=== PATIENT | male | born 1950 | race Caucasian/White ===

== ENCOUNTER 2016-10-30 12:35 | Inpatient (IN) | payer MEDICARE ==
[~2016-10-30] VITALS: Ht 188 cm; Wt 105.1 kg
[2016-10-30] VITALS (12 sets, daily range): BP systolic 102–154; BP diastolic 65–108; PULSE 65–140; RESP 16–26; TEMP 98.2–98.7; O2SAT 91–98
[2016-10-30] MEDS ORDERED: ASPIRIN 325 MG TAB PO ONE (13:30)
[2016-10-30] MEDS ORDERED: AMIODARONE INJ 150 MG in DEXTROSE 5% IN WATER 100ML INJ 97 ML IV ONE ×2 (13:30)
[2016-10-30] MEDS ORDERED: SODIUM CHLOR 0.9% 1000 ML INJ 1,000 ML IV SCH (13:30)
[2016-10-30] MEDS ORDERED: SODIUM CHLORIDE 0.9% FLUSH 5 ML FLUSH IVF PRN ×2 (13:30)
[2016-10-30] MEDS ORDERED: ONDANSETRON HCL 4 MG/2 ML VIAL IV PUSH ONE ×2 (13:30)
[2016-10-30] MEDS ORDERED: MORPHINE SULFATE 4 MG/ML INJ IV PUSH ONE ×3 (13:30→14:00)
[2016-10-30] MEDS ORDERED: HEPARIN-D5W INJ 250 ML IV SCH (13:45)
[2016-10-30] MEDS ORDERED: HEPARIN SODIUM - IV 10,000 UNITS/10 ML VIAL IV ONE (13:45)
[2016-10-30 14:01] LABS: AUTOMATED NEUTROPHIL # 10.8 TH/MM3 (1.8-7.7); BASOPHIL % 0.3 % (0.0-2.0); EOSINOPHIL % 0.1 % (0.0-4.0); HEMATOCRIT 37.3 % (39.0-51.0); HEMO FLAGS DIFF FINAL; LYMPH % 5.4 % (9.0-44.0); LYMPHOCYTE # 0.7 TH/MM3 (1.0-4.8); MEAN CELL VOLUME 93.2 FL (80.0-100.0); MEAN CORPUSCULAR HEMOGLOBIN 31.6 PG (27.0-34.0); MEAN CORPUSCULAR HGB CONC 33.9 % (32.0-36.0); MONO % 10.3 % (0.0-8.0); NEUT % 83.9 % (16.0-70.0); PLATELET COUNT 224 TH/MM3 (150-450); RED CELL DISTRIBUTION WIDTH 13.3 % (11.6-17.2); WHITE BLOOD COUNT 12.9 TH/MM3 (4.0-11.0)
--- NOTE | 2016-10-30 14:01 | RADRPT ---
EXAM DATE/TIME: 10/30/2016 13:28 [facility] COMPARISON: No previous studies available for comparison. INDICATIONS : Chest pain. MEDICAL HISTORY : None. SURGICAL HISTORY : None. ENCOUNTER: Initial ACUITY: 1 week PAIN SCORE: 10/10 LOCATION: medial chest. FINDINGS: A single view of the chest demonstrates cardiomegaly. Perihilar and basilar airspace disease. Differe ntial diagnosis includes edema and infection. Probable small effusions. No pneumothorax. CONCLUSION: 1. Cardiomegaly with basilar and perihilar airspace disease and small effusions. Differential diagnos is includes edema and infection. Sanya Pelaez MD on October 30, 2016 at 13:59 Board Certified Radiologist. This report was verified electronically.
[2016-10-30 14:09] LABS: APTT (PATIENT) 28.7 SEC (24.3-30.1); INTERNATIONAL NORMALIZED RATIO 1.1 RATIO; PROTHROMBIN TIME - PATIENT 12.6 SEC (9.8-11.6)
[2016-10-30 14:13] LABS: ALT (GPT) 173 U/L (12-78); ANION GAP 10 MEQ/L (5-15); AST (GOT) 63 U/L (15-37); BICARBONATE 23.7 MEQ/L (21.0-32.0); BLOOD UREA NITROGEN 17 MG/DL (7-18); CHLORIDE 91 MEQ/L (98-107); GLOMERULAR FILTRATION RATE 71 ML/MIN (>89); MAGNESIUM 1.5 MG/DL (1.5-2.5); SODIUM (NA) 125 MEQ/L (136-145)
[2016-10-30 14:17] LABS: ALKALINE PHOSPHATASE 84 U/L (45-117); CREATINE KINASE 369 U/L (39-308); TOTAL BILIRUBIN ADULT 1.1 MG/DL (0.2-1.0)
[2016-10-30 14:30] LABS: CKMB 8.7 NG/ML (0.5-3.6)
[2016-10-30] MEDS ORDERED: IOHEXOL 350 MG/ML 10 ML VIAL (for RAD DIAG) IV ONE (14:41)
--- NOTE | 2016-10-30 15:02 | RADRPT ---
EXAM DATE/TIME: 10/30/2016 14:37 [facility] COMPARISON: CHEST SINGLE AP, October 30, 2016, 13:28. INDICATIONS : Midsternal pain for one week. Right lower extremity swelling and short of breath today. IV CONTRAST: 49 cc Omnipaque 350 (iohexol) IV RADIATION DOSE: 21.66 CTDIvol (mGy) MEDICAL HISTORY : Gastroesophageal reflux disease. SURGICAL HISTORY : None. ENCOUNTER: Initial ACUITY: 1 week PAIN SCALE: 10/10 LOCATION: medial chest TECHNIQUE: Volumetric scanning of the chest was performed using a pulmonary embolism protocol MIP images were re constructed. Using automated exposure control and adjustment of the mA and/or kV according to patien t size, radiation dose was kept as low as reasonably achievable to obtain optimal diagnostic quality images. FINDINGS: PULMONARY ARTERIES: No filling defects are seen in the pulmonary arteries through the segmental level. LUNGS: There is multilobar consolidation greatest within the lower lobes and right middle lobe. A few patchy densities in the left upper lobe. PLEURAE: There are small bilateral pleural effusions. MEDIASTINUM: There is good visualization of the great vessels of the middle mediastinum. No evidence of mediastin al or hilar adenopathy/mass. Cardiomegaly. MUSCULOSKELETAL: Within normal limits for patient age. MISCELLANEOUS: The visualized upper abdominal organs demonstrate no acute abnormality. CONCLUSION: 1. No evidence for pulmonary embolism. 2. Multilobar consolidation likely pneumonia or possibly pulmonary edema. 3. Cardiomegaly with small bilateral pleural effusions. Enrique Vidales MD on October 30, 2016 at 14:52 Board Certified Radiologist. This report was verified electronically.
[2016-10-30] MEDS ORDERED: AZITHROMYCIN INJ 500 MG in SODIUM CHLOR 0.9% 250 ML INJ 250 ML IV STA (15:37)
[2016-10-30] MEDS ORDERED: cefTRIAXone INJ 2,000 MG in SODIUM CHLORIDE 0.9% INJ 100 ML IV STA (15:37)
--- NOTE | 2016-10-30 15:51 | PD ---
HPI Chief Complaint: Cardiac Complaint Time Seen by Provider: 13:29 Travel History International Travel<30 days: No Contact w/Intl Traveler<30days: No Traveled to known affect area: No History of Present Illness HPI 66-year-old male with history of gastroesophageal reflux disorder, presents to the ER today because he states that he has had several days' history of substernal chest pressure, started having chest pains and shortness of breath today according to his , and they have also noticed right leg swelling for several days. He had initially talked to his previous driver examiner, Dr. Burris , and was told to come to the ER for further evaluation. He denies any fevers or any other issues. He denies having been on any recent trips. He denies any known cardiac issues. Modifying Factors: None Associated Signs & Symptoms: Chest discomfort, shortness of breath, right leg discomfort Risk Factors: None PFSH Past Medical History GERD: Yes Social History Alcohol Use: Yes (OCC) Tobacco Use: No Substance Use: No Allergies-Medications (Allergen,Severity, Reaction): Coded Allergies: Sulfa (Verified Allergy, Unknown, 10/30/16) Reported Meds & Prescriptions Reported Meds & Active Scripts Active No Active Prescriptions or Reported Medications Review of Systems Except as stated in HPI: all other systems reviewed are Neg Physical Exam Narrative GENERAL: Well-nourished, well-developed elderly white male patient in mild distress. Awake and oriented 3. SKIN: Warm and dry. HEAD: Normocephalic. EYES: No scleral icterus. No injection or drainage. NECK: Supple, trachea midline. CARDIOVASCULAR: Fast and regular with no rubs or murmurs or gallops. RESPIRATORY: Breath sounds equal bilaterally. No accessory muscle use. GASTROINTESTINAL: Abdomen soft, non-tender, nondistended. MUSCULOSKELETAL: No cyanosis, or edema. BACK: Nontender without obvious deformity. No CVA tenderness. Data Data Last Documented VS Vital Signs Date Time Temp Pulse Resp B/P Pulse Ox O2 Delivery O2 Flow Rate FiO2 10/30/16 14:02 138 24 138/97 95 Room Air 4 10/30/16 12:37 98.2 Orders Electrocardiogram (10/30/16 ) Morphine Inj (Morphine Inj) (10/30/16 13:30) Ondansetron Inj (Zofran Inj) (10/30/16 13:30) Sodium Chlor 0.9% 1000 Ml Inj (Ns 1000 M (10/30/16 13:30) Ecg Monitoring (10/30/16 13:28) Blood Pressure (10/30/16 13:28) Vital Signs (10/30/16 13:28) Iv Access Insert/Monitor (10/30/16 13:28) Oximetry (10/30/16 13:28) Amiodarone Inj (Cordarone Inj) (10/30/16 13:30) Sodium Chloride 0.9% Flush (Ns Flush) (10/30/16 13:30) Ckmb (Isoenzyme) Profile (10/30/16 13:29) Complete Blood Count With Diff (10/30/16 13:29) Comprehensive Metabolic Panel (10/30/16 13:29) Magnesium (Mg) (10/30/16 13:29) Prothrombin Time / Inr (Pt) (10/30/16 13:29) Act Partial Throm Time (Ptt) (10/30/16 13:29) Troponin I (10/30/16 13:29) Chest, Single Ap (10/30/16 13:29) Bilateral Bp Monitoring (10/30/16 13:29) Oxygen Administration (10/30/16 13:29) Aspirin (Aspirin) (10/30/16 13:30) Sodium Chloride 0.9% Flush (Ns Flush) (10/30/16 13:30) Morphine Inj (Morphine Inj) (10/30/16 13:30) Ondansetron Inj (Zofran Inj) (10/30/16 13:30) Heparin Inj (Heparin Inj) (10/30/16 13:45) Heparin Inj (Heparin Inj) (10/30/16 19:45) Heparin Inj (Heparin Inj) (10/30/16 19:45) Heparin-D5w Inj (Heparin-D5w Inj) (10/30/16 13:45) Morphine Inj (Morphine Inj) (10/30/16 14:00) Ct Pulmonary Angiogram (10/30/16 14:01) CKMB (10/30/16 13:30) CKMB% (10/30/16 13:30) Iohexol 350 Inj (Omnipaque 350 Inj) (10/30/16 14:41) Echo 2d Comp W/Dopp(Routine) (10/30/16 ) Apixaban (Eliquis) (10/30/16 21:00) Troponin I (10/30/16 15:10) Troponin I (10/31/16 08:00) B-Type Natriuretic Peptide (10/30/16 15:23) Lactic Acid Sepsis Protocol (10/30/16 15:37) Blood Culture (10/30/16 15:37) Ceftriaxone Inj (Rocephin Inj) (10/30/16 15:37) Azithromycin Inj (Zithromax Inj) (10/30/16 15:37) Admit Order (Ed Use Only) (10/30/16 15:56) Labs Laboratory Tests Test 10/30/16 13:30 White Blood Count 12.9 TH/MM3 Red Blood Count 4.00 MIL/MM3 Hemoglobin 12.6 GM/DL Hematocrit 37.3 % Mean Corpuscular Volume 93.2 FL Mean Corpuscular Hemoglobin 31.6 PG Mean Corpuscular Hemoglobin 33.9 % Concent Red Cell Distribution Width 13.3 % Platelet Count 224 TH/MM3 Mean Platelet Volume 9.7 FL Neutrophils (%) (Auto) 83.9 % Lymphocytes (%) (Auto) 5.4 % Monocytes (%) (Auto) 10.3 % Eosinophils (%) (Auto) 0.1 % Basophils (%) (Auto) 0.3 % Neutrophils # (Auto) 10.8 TH/MM3 Lymphocytes # (Auto) 0.7 TH/MM3 Monocytes # (Auto) 1.3 TH/MM3 Eosinophils # (Auto) 0.0 TH/MM3 Basophils # (Auto) 0.0 TH/MM3 CBC Comment DIFF FINAL Differential Comment Prothrombin Time 12.6 SEC Prothromb Time International 1.1 RATIO Ratio Activated Partial 28.7 SEC Thromboplast Time Sodium Level 125 MEQ/L Potassium Level 4.0 MEQ/L Chloride Level 91 MEQ/L Carbon Dioxide Level 23.7 MEQ/L Anion Gap 10 MEQ/L Blood Urea Nitrogen 17 MG/DL Creatinine 1.05 MG/DL Estimat Glomerular Filtration 71 ML/MIN Rate Random Glucose 143 MG/DL Calcium Level 8.3 MG/DL Magnesium Level 1.5 MG/DL Total Bilirubin 1.1 MG/DL Aspartate Amino Transf 63 U/L (AST/SGOT) Alanine Aminotransferase 173 U/L (ALT/SGPT) Alkaline Phosphatase 84 U/L Total Creatine Kinase 369 U/L Creatine Kinase MB 8.7 NG/ML Creatine Kinase MB % 2.4 % Troponin I 0.04 NG/ML Total Protein 6.5 GM/DL Albumin 3.3 GM/DL MDM Medical Decision Making Medical Screen Exam Complete: Yes Emergency Medical Condition: Yes Medical Record Reviewed: Yes Interpretation(s) EKG shows wide complex tachycardia at a rate of 130 bpm no signs of acute ST-T in a left bundle branch block pattern. Laboratory Tests Test 10/30/16 13:30 White Blood Count 12.9 TH/MM3 (4.0-11.0) Red Blood Count 4.00 MIL/MM3 (4.50-5.90) Hemoglobin 12.6 GM/DL (13.0-17.0) Hematocrit 37.3 % (39.0-51.0) Neutrophils (%) (Auto) 83.9 % (16.0-70.0) Lymphocytes (%) (Auto) 5.4 % (9.0-44.0) Monocytes (%) (Auto) 10.3 % (0.0-8.0) Neutrophils # (Auto) 10.8 TH/MM3 (1.8-7.7) Lymphocytes # (Auto) 0.7 TH/MM3 (1.0-4.8) Monocytes # (Auto) 1.3 TH/MM3 (0-0.9) Prothrombin Time 12.6 SEC (9.8-11.6) Sodium Level 125 MEQ/L (136-145) Chloride Level 91 MEQ/L (98-107) Estimat Glomerular Filtration 71 ML/MIN (>89) Rate Random Glucose 143 MG/DL (74-106) Calcium Level 8.3 MG/DL (8.5-10.1) Total Bilirubin 1.1 MG/DL (0.2-1.0) Aspartate Amino Transf 63 U/L (15-37) (AST/SGOT) Alanine Aminotransferase 173 U/L (12-78) (ALT/SGPT) Total Creatine Kinase 369 U/L (39-308) Creatine Kinase MB 8.7 NG/ML (0.5-3.6) Albumin 3.3 GM/DL (3.4-5.0) Last [address] Angiography 10/30/16 1401 Signed Impressions: Service Date/Time: October 14:37 - CONCLUSION: 1. No evidence for pulmonary embolism. 2. Multilobar consolidation likely pneumonia or possibly pulmonary edema. 3. Cardiomegaly with small bilateral pleural effusions. Enrique Vidales MD Chest X-Ray 10/30/16 1329 Signed Impressions: Service Date/Time: October 13:28 - CONCLUSION: 1. Cardiomegaly with basilar and perihilar airspace disease and small effusions. Differential diagnosis includes edema and infection. Sanya Pelaez MD Differential Diagnosis ACS versus dysrhythmia versus dehydration versus metabolic issues versus PE Narrative Course EKG was initially seen by Dr. Douglass who ordered initial workup on the patient. We have discussed the patient with Dr. Burris who has suggested morphine and amiodarone with consult to Dr. Taylor with patient knows well. He came in to see the patient in the ER, and initially had worried about a PE, wanted a PE study done for further evaluation. PE study was done which shows no signs of PE but does show signs of possible pulmonary edema versus pneumonia. IV antibiotics and blood cultures were done as precaution for this patient. At this point, further workup will need to be done on the patient for further evaluation. Cardiac enzymes are negative. Clay Plant Treater would like me to admit patient to hospitalist service for further treatment and evaluation. Case is discussed with Dr. Cramer for admission. Sepsis Criteria SIRS Criteria (2 or more): Heart rate over 90, WBC > 03843, < 4000 or > 10% bands Sepsis Criteria (SIRS+source): Infect source susp/known Diagnosis Primary Impression: TACHYCARDIA, UNSPECIFIED Additional Impressions: UNSPECIFIED BACTERIAL PNEUMONIA SEPSIS, UNSPECIFIED ORGANISM Admitting Information Admitting Physician Requests: Admit Scripts No Active Prescriptions or Reported Meds Audra Witt MD Oct 30, 2016 15:50
--- NOTE | 2016-10-30 16:26 | HHI.HP ---
[facility] Mik Crespo MD Admission Diagnosis tachycardia dysrhythmia/pneumonia/chest pain Diagnoses: (1) Chest pain, atypical (2) Unstable angina (3) Community acquired pneumonia (4) Impaired fasting glucose (5) Anemia of chronic disease (6) Right leg swelling (7) Elevated LFTs Chief Complaint: Chest pain Travel History International Travel<30 Days: No Contact w/Intl Traveler <30 Da: No Traveled to Known Affected Are: No Sepsis Criteria SIRS Criteria (2 or more): Heart rate over 90, WBC > 23830, < 4000 or > 10% bands Severe Sepsis (+one): Organ Dysfunction Criteria Outcome: Meets severe sepsis criteria History of Present Illness 66-year-old male with no prior cardiac history, and had a negative for cardiac workup June 2016 came to the ED for evaluation of acute onset of substernal chest pain described as stabbing associated with diaphoresis, shortness of breath without any radiation and pain rated 10 out of 10 in intensity. This prompted him to call his previous human resources manager manufacturing Dr. Burris who advised patient to come to the ED for further evaluation. Patient states, since he has what he describes as heartburn with some chest pressure/ discomfort relieved sometimes with Prilosec. He also noticed worsening right leg swelling over the past several days however more pronounced today., Reported [address] last Thursday from the [facility]. Patient also reported dry cough and recent occasional chills. Otherwise he has no GI complaint, hemoptysis, hematuria or hematochezia Review of Systems Other Other 12 systems reviewed and are negative except for the one mentioned in the history of present illness Past Family Social History Past Medical History No prior medical history Past Surgical History Back surgery 2005 Knee surgery in 2070 Reported Medications Prilosec when necessary Allergies: Coded Allergies: Sulfa (Verified Allergy, Unknown, 10/30/16) Family History Father from massive CVA Mom from old age Social History Patient reports social alcohol, denies tobacco or illicit drug intake. 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 SKIN: No rashes, ecchymoses or lesions. Cool and dry. HEAD: Atraumatic. Normocephalic. No temporal or scalp tenderness. EYES: Pupils equal round and reactive. Extraocular motions intact. No scleral icterus. No injection or drainage. ENT: Nose without bleeding, purulent drainage or septal hematoma. Throat without erythema, tonsillar hypertrophy or exudate. Uvula midline. Airway patent. NECK: Trachea midline. No JVD or lymphadenopathy. Supple, nontender, no meningeal signs. CARDIOVASCULAR: Regular rate and rhythm without murmurs, gallops, or rubs. RESPIRATORY: Clear to auscultation. Breath sounds equal bilaterally. No wheezes , rales, or rhonchi. GASTROINTESTINAL: Abdomen soft, non-tender, nondistended. No hepato-splenomegaly , or palpable masses. No guarding. MUSCULOSKELETAL: Extremities without clubbing, cyanosis; trace edema RLE. Right lower extremity swelling NEUROLOGICAL: Awake and alert. Cranial nerves II through XII intact. Motor and sensory grossly within normal limits. Five out of 5 muscle strength in all muscle groups. Normal speech. Laboratory Laboratory Tests Test 10/30/16 13:30 White Blood Count 12.9 Red Blood Count 4.00 Hemoglobin 12.6 Hematocrit 37.3 Mean Corpuscular Volume 93.2 Mean Corpuscular Hemoglobin 31.6 Mean Corpuscular Hemoglobin 33.9 Concent Red Cell Distribution Width 13.3 Platelet Count 224 Mean Platelet Volume 9.7 Neutrophils (%) (Auto) 83.9 Lymphocytes (%) (Auto) 5.4 Monocytes (%) (Auto) 10.3 Eosinophils (%) (Auto) 0.1 Basophils (%) (Auto) 0.3 Neutrophils # (Auto) 10.8 Lymphocytes # (Auto) 0.7 Monocytes # (Auto) 1.3 Eosinophils # (Auto) 0.0 Basophils # (Auto) 0.0 CBC Comment DIFF FINAL Differential Comment Prothrombin Time 12.6 Prothromb Time International 1.1 Ratio Activated Partial 28.7 Thromboplast Time Sodium Level 125 Potassium Level 4.0 Chloride Level 91 Carbon Dioxide Level 23.7 Anion Gap 10 Blood Urea Nitrogen 17 Creatinine 1.05 Estimat Glomerular Filtration 71 Rate Random Glucose 143 Calcium Level 8.3 Magnesium Level 1.5 Total Bilirubin 1.1 Aspartate Amino Transf 63 (AST/SGOT) Alanine Aminotransferase 173 (ALT/SGPT) Alkaline Phosphatase 84 Total Creatine Kinase 369 Creatine Kinase MB 8.7 Creatine Kinase MB % 2.4 Troponin I 0.04 Total Protein 6.5 Albumin 3.3 Date/Time Procedure Status Source Growth 10/30/16 16:08 Aerobic Blood Culture Received Blood Peripheral Pending 10/30/16 16:08 Anaerobic Blood Culture Received Blood Peripheral Pending Result Diagram: 10/30/16 1330 10/30/[address] Angiography 10/30/16 1401 Signed Impressions: Service Date/Time: October 14:37 - CONCLUSION: 1. No evidence for pulmonary embolism. 2. Multilobar consolidation likely pneumonia or possibly pulmonary edema. 3. Cardiomegaly with small bilateral pleural effusions. Enrique Vidales MD Chest X-Ray 10/30/16 1329 Signed Impressions: Service Date/Time: October 13:28 - CONCLUSION: 1. Cardiomegaly with basilar and perihilar airspace disease and small effusions. Differential diagnosis includes edema and infection. Sanya Pelaez MD Assessment and Plan Problem List: (1) Chest pain, atypical ICD Code: R07.89 Status: Acute (2) NSTEMI (non-ST elevated myocardial infarction) ICD Code: I21.4 Status: Acute (3) Unstable angina ICD Code: I20.0 Status: Acute (4) Community acquired pneumonia ICD Code: J18.9 Status: Acute (5) Impaired fasting glucose ICD Code: R73.01 Status: Acute (6) Anemia of chronic disease ICD Code: D63.8 Status: Acute (7) Right leg swelling ICD Code: M79.89 Status: Acute Assessment and Plan 66-year-old male with Unstable angina/non-ST elevation DE/atypical chest pain: CT noted and reviewed by me without any evidence of pulmonary embolism; initial cardiac enzyme negative, continue ACS rule out per protocol with serial cardiac enzyme and EKGs. Continue with amiodarone drip, morphine, aspirin, nitroglycerin PRN and statin therapy. Eliquis and telemetry monitoring. Consult cardiology evaluation for possible nuclear stress test. Check 2-D echo Pulmonary congestion: Questionable congestive heart failure. CTA noted in review. Check 2-D echo and BNP. Patient started on Lasix 20 mg IV every 12 hour and start supplement. CHF education, strict I's and O's therefore will stop IV fluid hydration Severe Sepsis: Meets severe sepsis criteria-Heart rate over 90, WBC > 86326, < 4000 or > 10% bands; Organ Dysfunction. Lactic acid pending. Likely secondary to pulmonary infiltrate.Status post Rocephin and azithromycin IV 1 in ED, continue with antibiotics pending culture report Community-acquired pneumonia:Status post Rocephin and azithromycin IV 1 in ED, continue with antibiotics. DuoNeb when necessary and maintain oxygen saturation above 92% Right lower leg swelling: Rule out DVT with Doppler although CTA was negative for PE Impaired fasting glucose: No known history of diabetes type 2, check hemoglobin A1c and treat accordingly Anemia mostly of chronic disease: Check iron profile and treat accordingly Mildly elevated LFTs: Mostly secondary to liver disease due to alcohol, check hepatitis profile and treat accordingly. Monitor LFTs Hyponatremia: Likely secondary to beer Potomania; monitor however secondary to pulmonary congestion/CHF will not continue IV fluid hydration. DVT prophylaxis: Eliquis Code Status Full code Discussed Condition With Patient, , ED physician Physician Certification 2 Midnight Certification Type: Admission for Inpatient Services Order for Inpatient Services The services are ordered in accordance with Medicare regulations or non- Medicare payer requirements, as applicable. In the case of services not specified as inpatient-only, they are appropriately provided as inpatient services in accordance with the 2-midnight benchmark. Estimated LOS (days): 2 days is the estimated time the patient will need to remain in the hospital, assuming treatment plan goals are met and no additional complications. Post-Hospital Plan: Not yet determined Enrique Cramer MD Oct 30, 2016 16:26
[2016-10-30] MEDS ORDERED: MORPHINE SULFATE 4 MG/ML INJ IV PUSH PRN (16:30)
[2016-10-30] MEDS ORDERED: FUROSEMIDE 40 MG/4 ML VIAL IV PUSH STA (16:37)
[2016-10-30] MEDS ORDERED: SODIUM CHLORIDE 0.9% FLUSH 5 ML FLUSH IV PRN (16:45)
[2016-10-30] MEDS: FUROSEMIDE 20 MG/2 ML VIAL IV PUSH SCH (17:42)
[2016-10-30] MEDS ORDERED: MORPHINE SULFATE 4 MG/ML INJ IV PRN (18:00)
[2016-10-30] MEDS ORDERED: NITROGLYCERIN 0.4 MG SL 25 TABS/BTL SL PRN (18:00)
[2016-10-30] MEDS ORDERED: ACETAMINOPHEN 500 MG CPLT PO PRN (18:00)
[2016-10-30] MEDS: DEXAMETHASONE SOD PHOS 4 MG/ML VIAL IV PUSH SCH (18:12)
--- NOTE | 2016-10-30 18:24 | RADRPT ---
EXAM DATE/TIME: 10/30/2016 17:43 [facility] COMPARISON: No previous studies available for comparison. INDICATIONS : Gallstones. MEDICAL HISTORY : Gastroesophageal reflux disease. SURGICAL HISTORY : Right knee replacement. L3 and L4 disc surgery. ENCOUNTER: Initial ACUITY: 4-6 days PAIN SCORE: 9/10 LOCATION: Right upper quadrant MEASUREMENTS: LIVER: 18.4 cm length COMMON DUCT: 4 mm RIGHT KIDNEY: 10.8 x 5.9 x 4.8 cm FINDINGS: LIVER: Normal echotexture without focal lesion or ductal dilatation. There is biphasic flow in the main port al vein suggesting vascular congestion. COMMON DUCT: No intraluminal mass or stone visualized. GALLBLADDER: No stones are seen but there is gallbladder wall thickening and pericholecystic fluid. No sonographic Bunn's sign delineated. PANCREAS: The visualized portions are within normal limits. RIGHT KIDNEY: No evidence of hydronephrosis, stone, or mass. CONCLUSION: Nonspecific gallbladder wall thickening but without sonographic Bunn sign. Congestive heart failure would be in the differential. No gallstones are demonstrated. Richie Salas MD on October 30, 2016 at 18:20 Board Certified Radiologist. This report was verified electronically.
--- NOTE | 2016-10-30 18:29 | RADRPT ---
EXAM DATE/TIME: 10/30/2016 17:22 [facility] COMPARISON: No previous studies available for comparison. INDICATIONS : Swelling. MEDICAL HISTORY : Gastroesophageal reflux disease. SURGICAL HISTORY : Right knee repalcement. L3 and L4 disc surgery. ENCOUNTER: Initial ACUITY: 4 - 6 days PAIN SCORE: 0/10 LOCATION: Right leg TECHNIQUE: Venous ultrasound of the leg was performed from the inguinal ligament to the proximal calf. Real-crystal e, color Doppler and spectral tracing, compression and augmentation techniques were used. FINDINGS: There is normal compressibility of the deep venous system from the inguinal region to the proximal ca lf. No echogenic clot is seen in the lumen of the common femoral, femoral, popliteal, and posterior tibial veins. There is a normal response of the venous system to proximal and distal augmentation an d respiration. CONCLUSION: No DVT of the right lower extremity. Richie Salas MD on October 30, 2016 at 18:27 Board Certified Radiologist. This report was verified electronically.
[2016-10-30 18:55] LABS: MAGNESIUM 1.5 MG/DL (1.5-2.5); TRANSFERRIN IRON PROFILE 168 MG/DL (200-360)
--- NOTE | 2016-10-30 19:00 | EC ---
Study Study Date:10/30/2016 STUDY CONCLUSIONS SUMMARY - Left ventricle: The cavity size was normal. Wall thickness was normal. Systolic function was moderately to severely reduced. The estimated ejection fraction was in the range of 30% to 35%. Diffuse hypokinesis. - Aortic valve: Valve area: 2.03cm^2 (Vmax). - Mitral valve: Mild to moderate regurgitation. - Left atrium: The atrium was mildly dilated. If LV function is below 40, please consider prescribing an ACEI or ARB or document rationale for non-use. PROCEDURE DATA STUDY STATUS: Elective. Procedure: Transthoracic echocardiography. Image quality was good. Scanning was performed from the parasternal, apical, and subcostal acoustic windows. Study completion: The patient tolerated the procedure well. Transthoracic echocardiography. M-mode, complete 2D, complete spectral Doppler, and color Doppler. Height: Height: 74in. Weight: Weight: 230.5lb. Body mass index: BMI: 29.7kg/m^2. Body surface area: BSA: 2.31m^2. Patient status: Inpatient. CARDIAC ANATOMY LEFT VENTRICLE: The cavity size was normal. Wall thickness was normal. Systolic function was moderately to severely reduced. The estimated ejection fraction was in the range of 30% to 35%. Diffuse hypokinesis. AORTIC VALVE: Trileaflet; normal thickness leaflets. Doppler: Transvalvular velocity was within the normal range. There was no stenosis. No regurgitation. Valve area: 2.03cm^2 (Vmax). Indexed valve area: 0.88cm^2/m^2 (Vmax). AORTA: Aortic root: The aortic root was normal in size. MITRAL VALVE: Structurally normal valve. Doppler: Transvalvular velocity was within the normal range. There was no evidence for stenosis. Mild to moderate regurgitation. LEFT ATRIUM: The atrium was mildly dilated. RIGHT VENTRICLE: The cavity size was normal. Wall thickness was normal. PULMONIC VALVE: Doppler: Transvalvular velocity was within the normal range. There was no evidence for stenosis. No regurgitation. TRICUSPID VALVE: Structurally normal valve. Doppler: Transvalvular velocity was within the normal range. No regurgitation. PULMONARY ARTERY: The main pulmonary artery was normal-sized. Systolic pressure was within the normal range. RIGHT ATRIUM: The atrium was normal in size. PERICARDIUM: There was no pericardial effusion. SYSTEMIC VEINS: Inferior vena cava: The vessel was normal in size. Patient weight: 230.5lb _Ejection fraction:_ 65-75% _Fractional shortening:_ 32% up to 5Kg 5-11.5Kg 11.6-22.9Kg 23-45Kg 45-57Kg Aortic Root 7-13 <17 13-22 17-27 17-27 LA diam 6-13 <23 24-38 33-47 37-40 RVID 10-17 7-15 7-15 7-18 8-17 LVIDd 12-22 <32 24-38 33-47 37-40 LVPW 2-4 3-6 5-7 6-8 7-8 IVS 2-4 3-6 5-7 6-8 7-8 BASIC MEASUREMENTS ADULT NORMAL Left ventricle LV internal dimension, ED, chordal 50.8 mm 43-52 level, PLAX LV internal dimension, ES, chordal *44 mm 23-38 level, PLAX Fractional shortening, chordal level, *13 % >29 PLAX LV posterior wall thickness, ED 10.9 mm IVS/LVPW ratio, ED 1.05 <1.3 Ventricular septum Septal thickness, ED 11.4 mm Aortic valve Leaflet separation 16 mm 15-26 BASIC MEASUREMENTS ADULT NORMAL Aortic valve Leaflet separation 16 mm 15-26 Aorta Root diameter, ED 24 mm 20-37 Left atrium Anterior-posterior dimension, ES *43 mm 19-40 Anterior-posterior dimension index, ES 1.86 cm/m^2 <2.2 LA/aortic root ratio 1.79 DOPPLER MEASUREMENTS ADULT NORMAL Aortic valve Peak velocity, S 139 cm/s Valve area, Vmax 2.03 cm^2 Valve area index, Vmax 0.88 cm^2/m^2 Mitral valve Maximal regurgitant velocity 312 cm/s Pulmonic valve Peak velocity, S 66.5 cm/s Regurgitant velocity, ED 121 cm/s LEGEND: Mean values are shown as u=mean value. Asterisk (*) jimenez values outside specified normal range. Prepared and signed by Robert Callahan [id number]
[2016-10-30] MEDS: AMIODARONE INJ 450 MG in DEXTROSE 5% IN WATE(EXCEL) INJ 241 ML IV SCH ×2 (19:09)
--- NOTE | 2016-10-30 19:22 | MB ---
cc: EKTA CARLISLE M.D., HUMAYUN A. M.D. DATE OF CONSULTATION: 10/30/2016. REASON FOR CONSULTATION: Chest pain, possible gallbladder disease. HISTORY OF PRESENT ILLNESS: This is a 66-year-old man apparently healthy who has really not been feeling well for several weeks. He was treating himself for reflux disease and then the chest pain progressively worsened. He had some swelling in the lower extremities and was brought to the emergency department by his . He was being attended to by Dr. Taylor. An ultrasound was done and showed some thickening of the gallbladder wall. His called me and asked me to come see him regarding his gallbladder. The patient has been in atrial flutter on the monitor and is receiving medications for this. He has a slightly elevated white count and a CT angio which did not show pulmonary embolism but did show some small pleural effusions and some consolidation. He also had an ultrasound of his lower extremities, which did not show DVT. He had an ultrasound of his gallbladder, which showed mild gallbladder wall thickening but no stones and no biliary ductal dilatation. ALLERGIES: HE HAS AN ALLERGY TO SULFA. He was just told by his mother he was allergic to sulfa. He does not know if he ever had a reaction to it. PAST MEDICAL HISTORY: His previous medical problems include: 1. Prior back surgery at [facility] by Dr. Vega. 2. Right knee surgery in the 1970s at [facility]. MEDICATIONS: He takes no routine medications. 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 He is . He has occasional alcohol use. Rare tobacco use. No HIV or hepatitis risk factors. FAMILY HISTORY: His family history is significant for his father being a three pack a day smoker, overweight and going in for knee surgery in his early 50s and I believe having a myocardial infarction and never leaving the hospital. He denies visual or hearing problems, although he does wear contacts. He denies sinus or swallowing problems. No history of heart disease or lung disease or history of liver, kidney or prostate disease. No history of chronic constipation or diarrhea. He has no blood in his urine or stool. He has had colonoscopies by Dr. Lee. He denies history of seizures or strokes. No history of diabetes or thyroid gland problems. He has never been on blood thinning medications. PHYSICAL EXAMINATION: GENERAL: On physical examination, he is a well-developed, well-nourished man. He is in mild distress. He is having chest pain. VITAL SIGNS: His heart rate varies from 80 to 140 and is consistent with atrial flutter. His respiratory rate is 24-26, blood pressure 138/97, O2 sats 92-95%. He is on nasal cannula oxygen 2-4 liters. HEAD, EYES, EARS, NOSE, THROAT: Normocephalic, atraumatic. His pupils are 2 to 3, round and reactive to light. His sclerae are anicteric. His oropharynx is clear. He has got excellent dentition. His mucous membranes are moist. NECK: His neck is supple without adenopathy. He has a midline trachea. No jugular venous distension. No carotid bruits. LUNGS: His lungs are clear and equal anteriorly bilaterally. HEART: His heart sounds are irregularly irregular. ABDOMEN: His abdomen is soft and nondistended. He has no scars. He has normal bowel sounds. He is absolutely nontender in the right upper quadrant. He has no rebound or guarding. No scars or hernias. GENITALIA/RECTAL: Exams are deferred. EXTREMITIES: He has bilateral lower extremity edema. 1+ pitting slightly more swollen on the right than the left. He has got chronic sort of venous insufficiency skin changes in the lower extremities. He had equal radial and dorsalis pedis pulses and they are irregular. NEUROLOGIC: Neurologically he is awake, alert and oriented. He has equal bilateral water use inspector strength and no gross motor or sensory deficit. LABORATORY STUDIES: His labs demonstrate a white count of 12,900 with 83.9% neutrophils. Hemoglobin is 12.6. Platelet count is 224. Coag studies: INR 1.18, PTT is 28.7. Sodium is 125, chloride 91, potassium is 4, creatinine is 1.05. His total bilirubin is 1.1, AST 63, ALT 173. His troponin was 0.04. BNP was 314. Albumin was 3.3. His lactic acid was 1.2. IMAGING STUDIES: CT angio again was negative for PE. He has multilobar consolidation likely pneumonia or possibly pulmonary edema. He has cardiomegaly with small bilateral pleural effusions. He had a gallbladder ultrasound which shows just mild thickening of one wall of the gallbladder. No stones or sludge. Lower extremity ultrasound reportedly negative for DVT. ASSESSMENT: This is a 66-year-old man with an atrial flutter with chest pain. He had an ultrasound which showed just some mild gallbladder wall thickening. He has no signs of severe cholecystitis that would explain his symptom complex. I discussed the patient with Dr. Salas of radiology and Dr. Taylor of cardiology, and they agree that the likely etiology is an abnormal heart rhythm with subsequent congestive heart failure and the sequelae that have followed. I have talked with the patient and his and I do not believe as gallbladder is the etiology of his problem, and in fact, Dr. Taylor suggested that general anesthesia would be unwise at this time. No surgical intervention is recommended or planned. The patient will undergo appropriate cardiac care to the direction of Dr. Taylor. MD EVE Robb/HEIKE /6:54 PM /7:06 PM
[2016-10-30] MEDS ORDERED: HEPARIN SODIUM - IV 10,000 UNITS/10 ML VIAL IV PRN ×2 (19:45)
[2016-10-30] MEDS: SODIUM CHLORIDE 0.9% FLUSH 5 ML FLUSH IV SCH (21:00)
[2016-10-30] MEDS: APIXABAN 5 MG TABLET PO SCH (21:47)
[2016-10-30] MEDS: LACTOBACILLUS ACIDOPHILUS TAB PO SCH (21:47)
[2016-10-31] VITALS (25 sets, daily range): BP systolic 101–140; BP diastolic 66–74; PULSE 56–126; RESP 18–20; TEMP 97.7–98.4; O2SAT 94–97
[2016-10-31] MEDS: TEMAZEPAM 15 MG CAP PO PRN ×2 (00:36→23:36)
[2016-10-31] MEDS: DEXAMETHASONE SOD PHOS 4 MG/ML VIAL IV PUSH SCH ×2 (02:55→10:15)
[2016-10-31] MEDS: AMIODARONE INJ 450 MG in DEXTROSE 5% IN WATE(EXCEL) INJ 241 ML IV SCH ×4 (04:27→23:36)
[2016-10-31 05:53] LABS: HDL CHOLESTEROL 33.1 MG/DL (40.0-60.0); LDL CHOLESTEROL 61 MG/DL (0-99)
--- NOTE | 2016-10-31 08:14 | MB ---
cc: MAYRA TAYLOR M.D. DATE OF CONSULTATION 10/30/2016 REASON FOR CONSULTATION Cardiology consultation Thank you Dr. Jimenez for asking us to see this very pleasant 66 year-old white male who presents with acute shortness of breath and chest pain, an EKG that shows atrial flutter with a left bundle branch block and a rapid rate of 139 beats per minute. The patient was having atypical chest pains last week, and Thursday. He was able to exertion himself fairly significantly yesterday and this morning woke up with a sudden shortness of breath and chest discomfort. The chest discomfort was pleuritic worse with every breath and very severe. He has received morphine here in the emergency room. The undersigned was contacted by Dr. Vincent Burris who is a friend of his and the patient at this time appears to be slightly more comfortable still having intense chest pain on inspiration. He also has evidence of a swollen right leg, which according to his , who is an occupational therapist, states is new. He has never had any chest pain with exertion. He had apparently had a negative nuclear stress test according to the last June and has never had any cardiac issues in the past. His EEG however in the past according to Dr. Burris has been normal and an EEG carried out here in 2005 showed a normal sinus rhythm. PAST MEDICAL HISTORY Positive for: 1. Lumbar surgery with Dr. Vega. 2. He also had an echocardiogram read by Dr. Sykes in 2005. That was negative for significant cardiomyopathy etc. FAMILY HISTORY Noncontributory SOCIAL HISTORY Nonsmoker REVIEW OF SYSTEMS Denies seizures, headaches, vomiting, diarrhea, dysuria, or hematuria. A 12-point review of systems is negative. He does state in the remote past as a child he did have surgery on his right knee which was an old football injury. PHYSICAL EXAM On examination his pulse was 139, respirations 26, pulse office of 95 and 92. HEART: He had two heart sounds. No murmurs. CHEST: Reveals some rare scattered rales. ABDOMEN: Soft. No hepatosplenomegaly. EXTREMITIES: Legs revealed quite dilated swelling in the right leg lower extremity which was mild with 1+ edema on the ankle. Left lower extremity was well developed and probably normal. GRAPHIC SPECIALIST: No localizing signs. Grossly normal. PSYCHIATRIC: Mildly anxious. LABORATORY DATA Chest x-ray was negative showing bibasilar perihilar airspace disease with small effusions. Other labs showed a normal troponin. White count was elevated at 12.9, hemoglobin 12.6, platelet count 224,000. Sodium 125, potassium 4.0, BUN 17, creatinine 1.05, INR 1.1. ASSESSMENT AND PLAN We will treat him at this point for pulmonary embolism and congestive heart failure. We will try and get him out of atrial flutter with amiodarone. We may consider cardioversion if absolutely necessary. We will also get a STAT echo for ejection fraction and a stat CTA to r/o pulmonary embolism Thank you for asking us to see this very pleasant gentleman. Mayra Taylor MD, FRCP,[facility] JOSE LUIS/NALINI /2:32 PM /7:58 AM DEAN
[2016-10-31] MEDS: PANTOPRAZOLE SOD 40 MG DELAYED RELEASE TAB PO SCH (08:20)
[2016-10-31] MEDS: LACTOBACILLUS ACIDOPHILUS TAB PO SCH ×2 (08:21→22:03)
[2016-10-31] MEDS: APIXABAN 5 MG TABLET PO SCH (08:21)
[2016-10-31] MEDS: AZITHROMYCIN 250 MG TAB PO SCH (08:21)
[2016-10-31] MEDS: ASPIRIN 325 MG TAB PO SCH (08:21)
[2016-10-31] MEDS: FUROSEMIDE 20 MG/2 ML VIAL IV PUSH SCH ×2 (08:22→18:00)
[2016-10-31] MEDS: SODIUM CHLORIDE 0.9% FLUSH 5 ML FLUSH IV SCH ×2 (08:22→22:04)
[2016-10-31] MEDS: cefTRIAXone INJ 1,000 MG in SODIUM CHLORIDE 0.9% INJ 100 ML IV SCH (10:15)
[2016-10-31 12:01] LABS: HEMOGLOBIN A1a 1.3 %; HEMOGLOBIN A1b 0.8 %; HEMOGLOBIN Ao 83.6 %; HEMOGLOBIN LA1C 2.9 %; HEMOGLOBIN P3 5.8 %
--- NOTE | 2016-10-31 12:37 | PD.CARD.PN ---
Subjective Subjective Remarks LATE ENTRY, PATIENT SEEN AND EVALUATED AT 0915. The patient reports he feels "much better" this morning. He denies pain with inhalation. He is still in atrial fib/fluttter with rapid rhythm despite amiodarone IV. His lower extremity edema has improved. Objective Medications Current Medications Medications (Trade) Dose Ordered Sig/Robles Route Start Time Stop Time Status Last Admin (Eliquis) 5 mg BID PO 10/30/16 21:00 10/31/16 08:21 Morphine Sulfate 2 mg 2 mg Q3H PRN IV PUSH 10/30/16 16:30 (Cordarone Inj/ D5W ([place]) Inj) 250 ml @ 0 mls/hr CONTINUOUS IV 10/30/16 16:30 10/31/16 04:27 (Lasix Inj) 20 mg BID@09,18 IV PUSH 10/30/16 18:00 10/31/16 08:22 (NS Flush) 2 ml BID IV 10/30/16 21:00 10/31/16 08:22 (NS Flush) 2 ml UNSCH PRN IV 10/30/16 16:45 (Aspirin) 325 mg DAILY PO 10/31/16 09:00 10/31/16 08:21 (Nitrostat Sl) 0.4 mg Q5M PRN SL 10/30/16 18:00 (Tylenol) 500 mg Q4H PRN PO 10/30/16 18:00 (Morphine Inj) 2 mg Q5M PRN IV 10/30/16 18:00 (Protonix) 40 mg DAILY PO 10/31/16 09:00 10/31/16 08:20 Temazepam 15 mg 15 mg HS PRN PO 10/30/16 21:00 10/31/16 00:36 (Rocephin Inj/NS Inj) 100 ml @ 200 mls/hr Q24H IV 10/31/16 10:00 10/31/16 10:15 (Zithromax) 500 mg DAILY PO 10/31/16 09:00 10/31/16 08:21 (Lactinex) 1 tab Q12HR PO 10/30/16 21:00 10/31/16 08:21 (Lipitor) 10 mg HS PO 10/31/16 21:00 (Decadron Inj) 4 mg Q8H IV PUSH 10/30/16 18:00 10/31/16 10:15 Vital Signs / I&O Vital Signs Date Time Temp Pulse Resp B/P Pulse Ox O2 Delivery O2 Flow Rate FiO2 10/31/16 06:00 113 10/31/16 05:00 114 10/31/16 04:00 111 10/31/16 03:00 114 10/31/16 03:00 123 20 140/68 95 10/31/16 02:00 115 10/31/16 01:49 95 Nasal Cannula 2.00 10/31/16 01:00 116/69 10/31/16 01:00 119 10/31/16 00:00 65 10/30/16 23:37 65 10/30/16 23:00 98.7 139 18 122/89 91 10/30/16 22:00 110 18 120/71 98 Nasal Cannula 2 10/30/16 21:13 134 18 120/71 94 Room Air 10/30/16 20:30 138 20 108/65 95 Nasal Cannula 2 10/30/16 19:45 94 16 102/70 95 Nasal Cannula 2 10/30/16 19:25 110 18 116/95 95 Nasal Cannula 2 10/30/16 14:02 138 24 138/97 95 Room Air 4 10/30/16 14:02 138 24 139/97 95 Nasal Cannula 4 10/30/16 14:02 95 Nasal Cannula 4 10/30/16 14:02 95 Nasal Cannula 4 10/30/16 13:30 139 26 154/107 95 Nasal Cannula 4 10/30/16 13:24 139 26 149/108 93 Nasal Cannula 2 10/30/16 12:40 149/91 145/90 10/30/16 12:37 98.2 140 24 146/91 92 I/O 10/30/16 10/30/16 10/30/16 10/31/16 10/31/16 10/31/16 07:00 15:00 23:00 07:00 15:00 23:00 Intake Total 489 ml Output Total 725 ml Balance -236 ml Intake Oral 240 ml IV Total 249 ml Output Urine Total 725 ml Physical Exam GENERAL: Sitting up in bed, no acute distress SKIN: Warm and dry. HEAD: Normocephalic. EYES: No scleral icterus. No injection or drainage. NECK: Supple, trachea midline. No JVD or lymphadenopathy. CARDIOVASCULAR: Irregularly irregular, tachycardia RESPIRATORY: Breath sounds equal bilaterally. No accessory muscle use. GASTROINTESTINAL: Abdomen soft, non-tender, nondistended. MUSCULOSKELETAL: No cyanosis, bilateral lower extremity edema R>L BACK: Nontender without obvious deformity. No CVA tenderness. Laboratory Laboratory Tests Test 10/30/16 10/30/16 10/30/16 10/31/16 13:30 16:05 16:25 05:08 White Blood Count 12.9 TH/MM3 Red Blood Count 4.00 MIL/MM3 Hemoglobin 12.6 GM/DL Hematocrit 37.3 % Mean Corpuscular Volume 93.2 FL Mean Corpuscular Hemoglobin 31.6 PG Mean Corpuscular Hemoglobin 33.9 % Concent Red Cell Distribution Width 13.3 % Platelet Count 224 TH/MM3 Mean Platelet Volume 9.7 FL Neutrophils (%) (Auto) 83.9 % Lymphocytes (%) (Auto) 5.4 % Monocytes (%) (Auto) 10.3 % Eosinophils (%) (Auto) 0.1 % Basophils (%) (Auto) 0.3 % Neutrophils # (Auto) 10.8 TH/MM3 Lymphocytes # (Auto) 0.7 TH/MM3 Monocytes # (Auto) 1.3 TH/MM3 Eosinophils # (Auto) 0.0 TH/MM3 Basophils # (Auto) 0.0 TH/MM3 CBC Comment DIFF FINAL Differential Comment Prothrombin Time 12.6 SEC Prothromb Time International 1.1 RATIO Ratio Activated Partial 28.7 SEC Thromboplast Time Sodium Level 125 MEQ/L Potassium Level 4.0 MEQ/L Chloride Level 91 MEQ/L Carbon Dioxide Level 23.7 MEQ/L Anion Gap 10 MEQ/L Blood Urea Nitrogen 17 MG/DL Creatinine 1.05 MG/DL Estimat Glomerular Filtration 71 ML/MIN Rate Random Glucose 143 MG/DL Calcium Level 8.3 MG/DL Magnesium Level 1.5 MG/DL Iron Level 34 MCG/DL Total Iron Binding Capacity 235 MCG/DL Percent Iron Saturation 14.5 % Total Bilirubin 1.1 MG/DL Aspartate Amino Transf 63 U/L (AST/SGOT) Alanine Aminotransferase 173 U/L (ALT/SGPT) Alkaline Phosphatase 84 U/L Total Creatine Kinase 369 U/L Creatine Kinase MB 8.7 NG/ML Creatine Kinase MB % 2.4 % Troponin I 0.04 NG/ML 0.04 NG/ML 0.03 NG/ML B-Type Natriuretic Peptide 314 PG/ML 445 PG/ML Total Protein 6.5 GM/DL Albumin 3.3 GM/DL Lactic Acid Level 1.2 mmol/L Triglycerides Level 46 MG/DL Cholesterol Level 103 MG/DL LDL Cholesterol 61 MG/DL HDL Cholesterol 33.1 MG/DL Cholesterol/HDL Ratio 3.11 RATIO Imaging Last [address] Angiography 10/30/16 1401 Signed Impressions: Service Date/Time: October 14:37 - CONCLUSION: 1. No evidence for pulmonary embolism. 2. Multilobar consolidation likely pneumonia or possibly pulmonary edema. 3. Cardiomegaly with small bilateral pleural effusions. Enrique Vidales MD Chest X-Ray 10/30/16 1329 Signed Impressions: Service Date/Time: October 13:28 - CONCLUSION: 1. Cardiomegaly with basilar and perihilar airspace disease and small effusions. Differential diagnosis includes edema and infection. Sanya Pelaez MD Lower Extremity Ultrasound 10/30/16 0000 Signed Impressions: Service Date/Time: October 17:22 - CONCLUSION: No DVT of the right lower extremity. Richie Salas MD Gall Bladder Ultrasound 10/30/16 0000 Signed Impressions: Service Date/Time: October 17:43 - CONCLUSION: Nonspecific gallbladder wall thickening but without sonographic Bunn sign. Congestive heart failure would be in the differential. No gallstones are demonstrated. Richie Salas MD Assessment and Plan Assessment and Plan Assessment: New onset atrial flutter with rapid rate. Chronic LBBB New onset of acute systolic CHF exacerbation. EF estimated in the 30s on echo. Reduced EF likely due to atrial arrhythmia and tachycardia. Abnormal CXR - pneumonia vs pulmonary edema SOB with associated pleuritic pain- CTA negative for PE Elevated LFTs - workup in progress Hyponatremia Plan: Will complete CLYDE/cardioversion today at lunch Consult Dr. Sharif for abnormal CXR, SOB and pleuritic chest pain Continue IV diuresis Will reevaluate EF and start BB, NESHA and Aldactone if EF remains low. Will also complete ischemic workup. He has a negative cardiac stress test recently with Dr. Burris. Patient seen and evaluated by Dr. Taylor. Alexandria Renae Oct 31, 2016 12:37
--- NOTE | 2016-10-31 13:05 | HHI.PR ---
Subjective Remarks Follow up PNA/A-Fib with RVR/Now acute systolic CHF 10/31/16-patient seen and examined; reports significant improvement of substernal chest pain as well as RLE edema. Currently NPO pending CLYDE +/- cardioversion Objective Vitals Vital Signs Date Time Temp Pulse Resp B/P Pulse Ox O2 Delivery O2 Flow Rate FiO2 10/31/16 06:00 113 10/31/16 05:00 114 10/31/16 04:00 111 10/31/16 03:00 114 10/31/16 03:00 123 20 140/68 95 10/31/16 02:00 115 10/31/16 01:49 95 Nasal Cannula 2.00 10/31/16 01:00 116/69 10/31/16 01:00 119 10/31/16 00:00 65 10/30/16 23:37 65 10/30/16 23:00 98.7 139 18 122/89 91 10/30/16 22:00 110 18 120/71 98 Nasal Cannula 2 10/30/16 21:13 134 18 120/71 94 Room Air 10/30/16 20:30 138 20 108/65 95 Nasal Cannula 2 10/30/16 19:45 94 16 102/70 95 Nasal Cannula 2 10/30/16 19:25 110 18 116/95 95 Nasal Cannula 2 10/30/16 14:02 138 24 138/97 95 Room Air 4 10/30/16 14:02 138 24 139/97 95 Nasal Cannula 4 10/30/16 14:02 95 Nasal Cannula 4 10/30/16 14:02 95 Nasal Cannula 4 10/30/16 13:30 139 26 154/107 95 Nasal Cannula 4 10/30/16 13:24 139 26 149/108 93 Nasal Cannula 2 I/O 10/30/16 10/30/16 10/30/16 10/31/16 10/31/16 10/31/16 07:00 15:00 23:00 07:00 15:00 23:00 Intake Total 489 ml Output Total 725 ml Balance -236 ml Intake Oral 240 ml IV Total 249 ml Output Urine Total 725 ml Result Diagram: 10/30/16 1330 10/30/16 [address] Angiography 10/30/16 1401 Signed Impressions: Service Date/Time: October 14:37 - CONCLUSION: 1. No evidence for pulmonary embolism. 2. Multilobar consolidation likely pneumonia or possibly pulmonary edema. 3. Cardiomegaly with small bilateral pleural effusions. Enrique Vidales MD Chest X-Ray 10/30/16 1329 Signed Impressions: Service Date/Time: October 13:28 - CONCLUSION: 1. Cardiomegaly with basilar and perihilar airspace disease and small effusions. Differential diagnosis includes edema and infection. Sanya Pelaez MD Lower Extremity Ultrasound 10/30/16 0000 Signed Impressions: Service Date/Time: October 17:22 - CONCLUSION: No DVT of the right lower extremity. Richie Salas MD Gall Bladder Ultrasound 10/30/16 0000 Signed Impressions: Service Date/Time: October 17:43 - CONCLUSION: Nonspecific gallbladder wall thickening but without sonographic Bunn sign. Congestive heart failure would be in the differential. No gallstones are demonstrated. Richie Salas MD Objective Remarks GENERAL: NAD SKIN: Warm and dry. HEAD: Normocephalic. EYES: No scleral icterus. No injection or drainage. NECK: Supple, trachea midline. No JVD or lymphadenopathy. CARDIOVASCULAR: Regular rate and rhythm without murmurs, gallops, or rubs. RESPIRATORY: Breath sounds equal bilaterally. No accessory muscle use. GASTROINTESTINAL: Abdomen soft, non-tender, nondistended. MUSCULOSKELETAL: No cyanosis, or edema. BACK: Nontender without obvious deformity. No CVA tenderness. A/P Problem List: (1) Chest pain, atypical ICD Code: R07.89 Status: Acute (2) Community acquired pneumonia ICD Code: J18.9 Status: Acute (3) Impaired fasting glucose ICD Code: R73.01 Status: Acute (4) Anemia of chronic disease ICD Code: D63.8 Status: Acute (5) Right leg swelling ICD Code: M79.89 Status: Resolved (6) Elevated LFTs ICD Code: R94.5 Status: Acute (7) Acute systolic congestive heart failure ICD Code: I50.21 Status: Acute (8) Atrial fibrillation with rapid ventricular response ICD Code: I48.91 Status: Acute Assessment and Plan 66-year-old male with A-Fib with RVR: CT noted and reviewed by me without any evidence of pulmonary embolism; initial cardiac enzyme negative, ACS ruled out per protocol with serial cardiac enzyme and EKGs. Continue with amiodarone drip, morphine, aspirin, nitroglycerin PRN and statin therapy. Continue Eliquis and telemetry monitoring. May start BB. Appreciate input from Cardiology and plan for CLYDE with +/- Cardioversion today 10/31/16. 2-D echo with EF of 30% New onset acute CHF: CTA noted in review.BNP elevated and 2D echo with EF 30% pending CLYDE today to decide whether to start Diuretics. Continue Lasix 20 mg IV every 12 hour and K supplement. CHF education, strict I's and O's Severe Sepsis: Meets severe sepsis criteria-Heart rate over 90, WBC > 13425, < 4000 or > 10% bands; Organ Dysfunction. Lactic acid pending. Likely secondary to pulmonary infiltrate.Status post Rocephin and azithromycin IV 1 in ED, continue with antibiotics pending culture report Community-acquired pneumonia:Status post Rocephin and azithromycin IV 1 in ED, continue with antibiotics. DuoNeb when necessary and maintain oxygen saturation above 92% Right lower leg swelling: Resolved. DVT ruled out with Doppler Impaired fasting glucose: No known history of diabetes type 2,hemoglobin A1c pending and treat accordingly Anemia mostly of chronic disease: with BROOKE Mildly elevated LFTs: Mostly secondary to liver disease due to alcohol, check hepatitis profile and treat accordingly. Monitor LFTs Hyponatremia: Likely secondary to beer Potomania; monitor however secondary to pulmonary congestion/CHF will not continue IV fluid hydration. DVT prophylaxis: Enrique Cohen MD Oct 31, 2016 13:05 DVT prophylaxis: Enrique Cohen MD Oct 31, 2016 13:05
[2016-10-31] MEDS ORDERED: ASPIRIN 325 MG TAB PO SCH (15:30)
--- NOTE | 2016-10-31 15:50 | MB ---
cc: KARLENE TAYLOR M.D., R. STEVEN M.D. DATE OF CONSULTATION: 10/31/2016 HISTORY OF PRESENT ILLNESS Mr. Howell is a 66-year-old white male with no prior pulmonary history, in fact very little prior medical history at all. He has been followed in the past by Dr. Liam Burris. He has had periodic cardiac evaluations and in fact had a nuclear stress earlier in 2016 which was reported negative. He is also very active physically. He walks 2 or 3 miles a day with his and until about 2 weeks ago was what you might call the spitting image of health. At that point he began to develop intermittent chest discomfort which just gradually got worse over the last 2 weeks. He was treating it himself as indigestion, was taking antacids and was able to get a prescription for I believe Protonix, but he was getting no relief at all. At no point did he experience fever, cough, congestion or shortness of breath until about 24-48 hours ago when he began to develop increasing shortness of breath. The day of admission he experienced more severe crushing anterior type chest pain associated with shortness of breath and his insisted that he come to the hospital. When he presented he was in atrial fib/flutter, he had a mild elevation in BNP which subsequently brittanie to over 400, and he was seen by Dr. Taylor. He has never smoked. He has never had pneumonia. No history of allergies or asthma. He has no significant toxic inhalation exposures. In essence has never had any prior pulmonary history. PAST MEDICAL HISTORY He has had surgery by Dr. Samuel Vega on his back in 2005. He had knee surgery in 2006. ALLERGIES SULFA. FAMILY HISTORY Father had a massive stroke. Mother at an older age. SOCIAL HISTORY , living with is . 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 He grew up in [place]. Never smoked, used no illicit drugs. He drinks a glass of wine 2-3 nights a week. No history of excessive alcohol use. REVIEW OF SYSTEMS Essentially negative. However, after examining him I noticed that he had what appeared to be chronic venostasis changes and he has had a very long history of lower extremity edema. MEDICATIONS Current medications were reviewed in the EMR. PHYSICAL EXAMINATION VITAL SIGNS: He has been afebrile, 98 degrees. Heart rate has been elevated anywhere from 110-140. Blood pressure 108/65. Saturations 98% on 2 liters. HEENT: Sclera anicteric. Mucous membranes are moist. Pharynx is clear. NECK: No adenopathy in the neck or supraclavicular region. Neck veins are slightly distended at 45 degrees. CHEST: His chest is actually clear. No significant rales. No wheezes or congestion. HEART: A rapid heart rate, regular. No harsh murmur. No audible S3. ABDOMEN: Soft, nontender. EXTREMITIES: He does have chronic venostasis changes in both legs up above the ankles and pitting edema, right greater than left. No cyanosis or clubbing. IMAGING A CTA reveals no evidence of thromboembolism. He has patchy alveolar infiltrates in both lungs and very small effusions. The heart is enlarged. LABORATORY His blood cultures have been negative. White count is 12,000. BNP today is 445. Lactic acid is normal. Sodium on presentation 125. Liver functions are elevated, SGOT and SGPT. Troponins have been normal, although his total CK has been elevated. DISCUSSION Mr. Howell presents with what appears to be heart failure associated with rapid tachycardia which may have been present for a week or two. It is difficult to explain the chest pain, apparently does not have myocardial ischemia. He had a normal nuclear stress test within the last year. Dr. Taylor is evaluating that. He was cardioverted later this afternoon, hopefully that will help from a symptomatic standpoint. I cannot exclude the possibility of an underlying pneumonia but he has no sputum production. I will do urinary antigens on him and a nasal wash for influenza, but I think this is unlikely. He has been placed on antibiotics. I think that is appropriate in this circumstance because we cannot exclude the possibility of an associated infectious problem, it just seems less likely. I will monitor him along with you with further diagnostic and/or therapeutic interventions depending on the ongoing evaluation of his heart and his clinical status. R. MD ADAMA Hunter/CHIO /3:12 PM /3:39 PM
[2016-10-31 17:20] LABS: ALKALINE PHOSPHATASE 62 U/L (45-117); ALT (GPT) 111 U/L (12-78); ANION GAP 6 MEQ/L (5-15); AST (GOT) 25 U/L (15-37); BICARBONATE 28.8 MEQ/L (21.0-32.0); BLOOD UREA NITROGEN 18 MG/DL (7-18); CHLORIDE 101 MEQ/L (98-107); GLOMERULAR FILTRATION RATE 63 ML/MIN (>89); POTASSIUM 4.2 MEQ/L (3.5-5.1); SODIUM (NA) 136 MEQ/L (136-145); TOTAL BILIRUBIN ADULT 0.6 MG/DL (0.2-1.0)
--- NOTE | 2016-10-31 17:28 | MR ---
cc: MAYRA TAYLOR M.D., EUGENE M. MD DATE: 10/31/2016. PROCEDURE PERFORMED: Cardioversion. INDICATIONS FOR CARDIOVERSION: Aflutter with 2:1 heart block. DESCRIPTION OF THE PROCEDURE IN DETAIL: The patient was anesthetized as per the anesthesia department. The patient was in atrial flutter. The patient was on Eliquis. The patient given a 50 joule synchronized shock which converted into sinus rhythm. CONCLUSIONS: Successful cardioversion to sinus rhythm. PLAN: Will plan to proceed with diagnostic heart catheterization next week because of chf and cardiomyopathy. Mayra Taylor MD, FRCP,[facility] /3:21 PM /5:25 PM MTDElie
--- NOTE | 2016-10-31 17:33 | EKG ---
Date Performed: 10/30/2016 Time Performed: 13:11:55 PTAGE: 66 years EKG: WIDE COMPLEX TACHYCARDIA POTENTIALLY CONSISTENT WITH VENTRICULAR TACHYCARDIA. LEFT BUNDLE B RANCH BLOCK WHEN COMPARED WITH PRIOR EKG THE PATIENT NOW APPEARS TO BE IN VENTRICULAR TACHYCARDIA Cli nical correlation is recommended ABNORMAL ECG PREVIOUS TRACING : 07/27/2006 14.20 DOCTOR: Carmelita Hagen Interpretating Date/Time 10/31/2016 17:31:44
--- NOTE | 2016-10-31 17:36 | MR ---
cc: MAYRA TAYLOR M.D., EUGENE M. MD DATE: 10/31/2016. PROCEDURE PERFORMED: Transesophageal echocardiogram. INDICATIONS FOR THE PROCEDURE: 1. Atrial flutter with 2:1 heart block. 2. Congestive heart failure. 3. Reduced ejection fraction. 4. Pericarditis. CONSENT: Full informed consent was obtained prior to the procedure. The risks of , bleeding, myocardial infarction, perforation, aspiration, foreseen and unforeseen complications were reviewed. The patient and his fully appeared to understand and they were willing to proceed. DESCRIPTION OF THE PROCEDURE IN DETAIL: The patient was prepped and. A full transesophageal echocardiogram was performed. FINDINGS: The interatrial septum was intact. There was evidence of bowing of the interatrial septum towards the right side suggesting elevated left atrial pressure. The mitral valve was mildly thickened and calcified and mildly prolapsed with evidence of a mild eccentric mitral regurgitation. The tricuspid valve moved normally. The aortic valve was trileaflet. His overall left ventricular function was reduced estimated at 35% to 40%. There was evidence of mild pericardial effusion. The aorta was visualized to 40 cm and was free of significant disease. CONCLUSIONS: 1. Evidence of reduced left ventricular function. 2. The left atrial appendage was well-visualized with no evidence of thrombus. 3. Interatrial septum intact. 4. The mitral valve shows mild mitral regurgitation. 5. The tricuspid valve moved normally. PLAN: 1. Will plan to proceed with cardioversion since the left atrial appendage is free of thrombus. 2. Will also consider diagnostic heart catheterization because of the cardiomyopathy noted. Mayra Taylor MD, FRCP,[facility]ATAN[facility]/HEIKE /3:17 PM /5:28 PM
[2016-10-31 19:03] LABS: AUTOMATED NEUTROPHIL # 8.9 TH/MM3 (1.8-7.7); BASOPHIL % 0.2 % (0.0-2.0); HEMATOCRIT 36.9 % (39.0-51.0); HEMO FLAGS DIFF FINAL; LYMPH % 5.6 % (9.0-44.0); LYMPHOCYTE # 0.6 TH/MM3 (1.0-4.8); MEAN CELL VOLUME 94.1 FL (80.0-100.0); MONO % 10.6 % (0.0-8.0); NEUT % 83.6 % (16.0-70.0); PLATELET COUNT 202 TH/MM3 (150-450); RED BLOOD COUNT 3.92 MIL/MM3 (4.50-5.90); RED CELL DISTRIBUTION WIDTH 13.5 % (11.6-17.2); WHITE BLOOD COUNT 10.6 TH/MM3 (4.0-11.0)
--- NOTE | 2016-10-31 21:40 | EKG ---
Date Performed: 10/31/2016 Time Performed: 18:00:36 PTAGE: 66 years EKG: Sinus rhythm with 1st degree A-V block Possible left atrial abnormality Left bundle branch block Abnormal ECG PREVIOUS TRACING : 10/30/2016 13.11 Now sinus rhythm, previously Aflutter DOCTOR: Srinivasan Bro Interpretating Date/Time 10/31/2016 21:38:03
[2016-10-31] MEDS: ATORVASTATIN 10 MG TAB PO SCH (22:03)
[2016-10-31] MEDS: CARVEDILOL 3.125 MG TAB PO SCH (22:03)
[2016-11-01] VITALS (26 sets, daily range): BP systolic 109–130; BP diastolic 64–84; PULSE 61–76; RESP 14–16; TEMP 97.4–98; O2SAT 93–96
[2016-11-01 06:26] LABS: AUTOMATED NEUTROPHIL # 8.7 TH/MM3 (1.8-7.7); BASOPHIL % 0.1 % (0.0-2.0); HEMATOCRIT 31.9 % (39.0-51.0); HEMO FLAGS DIFF FINAL; LYMPH % 7.2 % (9.0-44.0); LYMPHOCYTE # 0.8 TH/MM3 (1.0-4.8); MEAN CELL VOLUME 93.8 FL (80.0-100.0); MEAN CORPUSCULAR HEMOGLOBIN 32.4 PG (27.0-34.0); MEAN CORPUSCULAR HGB CONC 34.5 % (32.0-36.0); MONO % 11.3 % (0.0-8.0); NEUT % 81.4 % (16.0-70.0); PLATELET COUNT 190 TH/MM3 (150-450); RED CELL DISTRIBUTION WIDTH 13.3 % (11.6-17.2); WHITE BLOOD COUNT 10.7 TH/MM3 (4.0-11.0)
[2016-11-01 06:52] LABS: ALKALINE PHOSPHATASE 65 U/L (45-117); ALT (GPT) 96 U/L (12-78); ANION GAP 7 MEQ/L (5-15); AST (GOT) 21 U/L (15-37); BICARBONATE 27.6 MEQ/L (21.0-32.0); BLOOD UREA NITROGEN 28 MG/DL (7-18); CHLORIDE 100 MEQ/L (98-107); GLOMERULAR FILTRATION RATE 60 ML/MIN (>89); SODIUM (NA) 135 MEQ/L (136-145); TOTAL BILIRUBIN ADULT 0.4 MG/DL (0.2-1.0)
[2016-11-01] MEDS: POTASSIUM CHLORIDE 20 MEQ CONTROLLED RELEASE TAB PO SCH (09:02)
[2016-11-01] MEDS: FUROSEMIDE 20 MG/2 ML VIAL IV PUSH SCH ×2 (09:02→18:42)
[2016-11-01] MEDS: AZITHROMYCIN 250 MG TAB PO SCH (09:02)
[2016-11-01] MEDS: ASPIRIN 325 MG TAB PO SCH (09:02)
[2016-11-01] MEDS: CARVEDILOL 3.125 MG TAB PO SCH ×2 (09:03→21:38)
[2016-11-01] MEDS: LACTOBACILLUS ACIDOPHILUS TAB PO SCH ×2 (09:03→21:37)
[2016-11-01] MEDS: PANTOPRAZOLE SOD 40 MG DELAYED RELEASE TAB PO SCH (09:03)
[2016-11-01] MEDS: SODIUM CHLORIDE 0.9% FLUSH 5 ML FLUSH IV SCH ×2 (09:03→21:39)
[2016-11-01] MEDS: cefTRIAXone INJ 1,000 MG in SODIUM CHLORIDE 0.9% INJ 100 ML IV SCH (10:47)
--- NOTE | 2016-11-01 12:53 | HHI.PR ---
Subjective Remarks Follow up PNA/A-Fib with RVR/Now acute systolic CHF 10/31/16-patient seen and examined; reports significant improvement of substernal chest pain as well as RLE edema. Currently NPO pending CLYDE +/- cardioversion 11/01/16-patient seen and examined, currently rate controlled. Complained of right hand swelling. Denies any chest pain. CLYDE performed 10/31/16 and patient was cardioverted yesterday. Objective Vitals Vital Signs Date Time Temp Pulse Resp B/P Pulse Ox O2 Delivery O2 Flow Rate FiO2 11/01/16 12:00 67 11/01/16 11:30 97.6 67 16 117/67 96 11/01/16 11:00 67 11/01/16 10:00 71 11/01/16 09:00 68 11/01/16 08:01 97.8 68 16 109/64 93 11/01/16 08:01 70 11/01/16 07:00 66 11/01/16 06:00 64 11/01/16 05:00 65 11/01/16 04:00 69 11/01/16 03:00 97.4 70 16 130/84 96 11/01/16 03:00 68 11/01/16 02:00 69 11/01/16 01:00 74 11/01/16 00:00 76 10/31/16 23:00 77 10/31/16 23:00 97.7 76 18 124/71 94 10/31/16 22:00 82 10/31/16 21:00 77 10/31/16 20:00 78 10/31/16 19:00 68 10/31/16 19:00 97.7 78 18 108/66 95 10/31/16 18:00 76 10/31/16 17:00 78 10/31/16 16:00 69 10/31/16 15:00 80 10/31/16 15:00 98.1 68 20 110/74 97 10/31/16 14:00 116 10/31/16 13:00 56 I/O 10/31/16 10/31/16 10/31/16 11/01/16 11/01/16 11/01/16 07:00 15:00 23:00 07:00 15:00 23:00 Intake Total 489 ml 580 ml 427 ml Output Total 725 ml 2200 ml 1280 ml Balance -236 ml -1620 ml -853 ml Intake Oral 240 ml 480 ml 240 ml IV Total 249 ml 100 ml 187 ml Output Urine Total 725 ml 2200 ml 1280 ml Result Diagram: 11/01/16 0533 11/01/16 [address] Angiography 10/30/16 1401 Signed Impressions: Service Date/Time: October 14:37 - CONCLUSION: 1. No evidence for pulmonary embolism. 2. Multilobar consolidation likely pneumonia or possibly pulmonary edema. 3. Cardiomegaly with small bilateral pleural effusions. Enrique Vidales MD Chest X-Ray 10/30/16 1329 Signed Impressions: Service Date/Time: October 13:28 - CONCLUSION: 1. Cardiomegaly with basilar and perihilar airspace disease and small effusions. Differential diagnosis includes edema and infection. Sanya Pelaez MD Lower Extremity Ultrasound 10/30/16 0000 Signed Impressions: Service Date/Time: October 17:22 - CONCLUSION: No DVT of the right lower extremity. Richie Salas MD Gall Bladder Ultrasound 10/30/16 0000 Signed Impressions: Service Date/Time: October 17:43 - CONCLUSION: Nonspecific gallbladder wall thickening but without sonographic Bunn sign. Congestive heart failure would be in the differential. No gallstones are demonstrated. Richie Salas MD Objective Remarks GENERAL: NAD SKIN: Warm and dry. HEAD: Normocephalic. EYES: No scleral icterus. No injection or drainage. NECK: Supple, trachea midline. No JVD or lymphadenopathy. CARDIOVASCULAR: Regular rate and rhythm without murmurs, gallops, or rubs. RESPIRATORY: Breath sounds equal bilaterally. No accessory muscle use. GASTROINTESTINAL: Abdomen soft, non-tender, nondistended. MUSCULOSKELETAL: No cyanosis, or edema. Right hand swelling BACK: Nontender without obvious deformity. No CVA tenderness. A/P Problem List: (1) Chest pain, atypical ICD Code: R07.89 Status: Resolved (2) Community acquired pneumonia ICD Code: J18.9 Status: Acute (3) Impaired fasting glucose ICD Code: R73.01 Status: Resolved (4) Anemia of chronic disease ICD Code: D63.8 Status: Chronic (5) Right leg swelling ICD Code: M79.89 Status: Resolved (6) Elevated LFTs ICD Code: R94.5 Status: Acute (7) Acute systolic congestive heart failure ICD Code: I50.21 Status: Acute (8) Atrial fibrillation with rapid ventricular response ICD Code: I48.91 Status: Acute Assessment and Plan 66-year-old male with A-Fib with RVR with Atypical chest pain on admission: Now rate control. .CTA without any evidence of pulmonary embolism; initial cardiac enzyme negative, ACS ruled out per protocol with serial cardiac enzyme and EKGs.2-D echo with EF of 30%. s/p successful cardioversions 10/31/16 .s/p CLYDE 10/31/16 with evidence of reduced left ventricular function and no evidence of thrombus in the left atrial appendage .Plan for diagnostic heart catheterization 11/03/16 because of cardiomyopathy. Continue with amiodarone drip, morphine, aspirin, nitroglycerin PRN and statin therapy. Eliquis on hold. Telemetry monitoring. Cardiology to consider when to start NESHA inhibitor, beta mary New onset acute systolic CHF: CTA noted in review.BNP elevated and 2D echo with EF 30%. CLYDE 10/31/16 with evidence of fluid use ventricular function. Continue Lasix 20 mg IV every 12 hour and K supplement. CHF education, strict I 's and O's . Cardiology to consider when to start NESHA inhibitor Severe Sepsis: Now resolved. Likely secondary to pulmonary infiltrate.Status post Rocephin and azithromycin IV 1 in ED, continue with antibiotics as preliminary culture reports negative Community-acquired pneumonia: CTA noted. Flu A and B antigens negative .Status post Rocephin and azithromycin IV 1 in ED, continue with antibiotics pending sputum, culture report. DuoNeb when necessary and maintain oxygen saturation above 92%. Appreciate input from pulmonary medicine Right lower leg swelling: Resolved. DVT ruled out with Doppler Right arm swelling: Check Doppler today 11/01/16 to rule out DVT Impaired fasting glucose: hemoglobin A1c 5.6 Anemia mostly of chronic disease: with BROOKE Mildly elevated LFTs: Resolving/improving. Monitor LFTs Hyponatremia: Likely secondary to beer Potomania; monitor however secondary to pulmonary congestion/CHF will not continue IV fluid hydration. DVT prophylaxis: Enrique Cohen MD Nov 01, 2016 12:53
--- NOTE | 2016-11-01 15:20 | PD.CARD.PN ---
Subjective Subjective Remarks Patient doing well. He has remained in sinus rhythm since cardioversion. is present. No angina. Objective Medications Current Medications Medications (Trade) Dose Ordered Sig/Robles Route Start Time Stop Time Status Last Admin Morphine Sulfate 2 mg 2 mg Q3H PRN IV PUSH 10/30/16 16:30 (Cordarone Inj/ D5W ([place]) Inj) 250 ml @ 0 mls/hr CONTINUOUS IV 10/30/16 16:30 10/31/16 23:36 (Lasix Inj) 20 mg BID@09,18 IV PUSH 10/30/16 18:00 11/01/16 09:02 (NS Flush) 2 ml BID IV 10/30/16 21:00 11/01/16 09:03 (NS Flush) 2 ml UNSCH PRN IV 10/30/16 16:45 (Aspirin) 325 mg DAILY PO 10/31/16 09:00 11/01/16 09:02 (Nitrostat Sl) 0.4 mg Q5M PRN SL 10/30/16 18:00 (Tylenol) 500 mg Q4H PRN PO 10/30/16 18:00 (Morphine Inj) 2 mg Q5M PRN IV 10/30/16 18:00 (Protonix) 40 mg DAILY PO 10/31/16 09:00 11/01/16 09:03 Temazepam 15 mg 15 mg HS PRN PO 10/30/16 21:00 10/31/16 23:36 (Rocephin Inj/NS Inj) 100 ml @ 200 mls/hr Q24H IV 10/31/16 10:00 11/01/16 10:47 (Zithromax) 500 mg DAILY PO 10/31/16 09:00 11/01/16 09:02 (Lactinex) 1 tab Q12HR PO 10/30/16 21:00 11/01/16 09:03 (Lipitor) 10 mg HS PO 10/31/16 21:00 10/31/16 22:03 (KCl) 20 meq DAILY PO 11/01/16 09:00 11/01/16 09:02 (Coreg) 3.125 mg Q12HR PO 10/31/16 21:00 11/01/16 09:03 Vital Signs / I&O Vital Signs Date Time Temp Pulse Resp B/P Pulse Ox O2 Delivery O2 Flow Rate FiO2 11/01/16 12:00 67 11/01/16 11:30 97.6 67 16 117/67 96 11/01/16 11:00 67 11/01/16 10:00 71 11/01/16 09:00 68 11/01/16 08:01 97.8 68 16 109/64 93 11/01/16 08:01 70 11/01/16 07:00 66 11/01/16 06:00 64 11/01/16 05:00 65 11/01/16 04:00 69 11/01/16 03:00 97.4 70 16 130/84 96 11/01/16 03:00 68 11/01/16 02:00 69 11/01/16 01:00 74 11/01/16 00:00 76 10/31/16 23:00 77 10/31/16 23:00 97.7 76 18 124/71 94 10/31/16 22:00 82 10/31/16 21:00 77 10/31/16 20:00 78 10/31/16 19:00 68 10/31/16 19:00 97.7 78 18 108/66 95 10/31/16 18:00 76 10/31/16 17:00 78 10/31/16 16:00 69 I/O 10/31/16 10/31/16 10/31/16 11/01/16 11/01/16 11/01/16 07:00 15:00 23:00 07:00 15:00 23:00 Intake Total 489 ml 580 ml 427 ml Output Total 725 ml 2200 ml 1280 ml Balance -236 ml -1620 ml -853 ml Intake Oral 240 ml 480 ml 240 ml IV Total 249 ml 100 ml 187 ml Output Urine Total 725 ml 2200 ml 1280 ml Physical Exam GENERAL: SKIN: Warm and dry. HEAD: Normocephalic. EYES: No scleral icterus. No injection or drainage. NECK: Supple, trachea midline. No JVD or lymphadenopathy. CARDIOVASCULAR: Regular rate and rhythm without murmurs, gallops, or rubs. RESPIRATORY: Breath sounds equal bilaterally. No accessory muscle use. GASTROINTESTINAL: Abdomen soft, non-tender, nondistended. MUSCULOSKELETAL: No cyanosis, or edema. Some swelling right upper arm. No cellulitis BACK: Nontender without obvious deformity. No CVA tenderness. Laboratory Laboratory Tests Test 10/31/16 10/31/16 11/01/16 16:30 18:35 05:33 Sodium Level 136 MEQ/L 135 MEQ/L Potassium Level 4.2 MEQ/L 4.0 MEQ/L Chloride Level 101 MEQ/L 100 MEQ/L Carbon Dioxide Level 28.8 MEQ/L 27.6 MEQ/L Anion Gap 6 MEQ/L 7 MEQ/L Blood Urea Nitrogen 18 MG/DL 28 MG/DL Creatinine 1.16 MG/DL 1.21 MG/DL Estimat Glomerular Filtration 63 ML/MIN 60 ML/MIN Rate Random Glucose 157 MG/DL 153 MG/DL Calcium Level 8.3 MG/DL 8.1 MG/DL Total Bilirubin 0.6 MG/DL 0.4 MG/DL Aspartate Amino Transf 25 U/L 21 U/L (AST/SGOT) Alanine Aminotransferase 111 U/L 96 U/L (ALT/SGPT) Alkaline Phosphatase 62 U/L 65 U/L Total Protein 5.9 GM/DL 5.7 GM/DL Albumin 2.8 GM/DL 2.7 GM/DL White Blood Count 10.6 TH/MM3 10.7 TH/MM3 Red Blood Count 3.92 MIL/MM3 3.40 MIL/MM3 Hemoglobin 12.6 GM/DL 11.0 GM/DL Hematocrit 36.9 % 31.9 % Mean Corpuscular Volume 94.1 FL 93.8 FL Mean Corpuscular Hemoglobin 32.0 PG 32.4 PG Mean Corpuscular Hemoglobin 34.0 % 34.5 % Concent Red Cell Distribution Width 13.5 % 13.3 % Platelet Count 202 TH/MM3 190 TH/MM3 Mean Platelet Volume 9.5 FL 9.0 FL Neutrophils (%) (Auto) 83.6 % 81.4 % Lymphocytes (%) (Auto) 5.6 % 7.2 % Monocytes (%) (Auto) 10.6 % 11.3 % Eosinophils (%) (Auto) 0.0 % 0.0 % Basophils (%) (Auto) 0.2 % 0.1 % Neutrophils # (Auto) 8.9 TH/MM3 8.7 TH/MM3 Lymphocytes # (Auto) 0.6 TH/MM3 0.8 TH/MM3 Monocytes # (Auto) 1.1 TH/MM3 1.2 TH/MM3 Eosinophils # (Auto) 0.0 TH/MM3 0.0 TH/MM3 Basophils # (Auto) 0.0 TH/MM3 0.0 TH/MM3 CBC Comment DIFF FINAL DIFF FINAL Differential Comment Imaging Last Impressions CT Angiography 10/30/16 1401 Signed Impressions: Service Date/Time: October 14:37 - CONCLUSION: 1. No evidence for pulmonary embolism. 2. Multilobar consolidation likely pneumonia or possibly pulmonary edema. 3. Cardiomegaly with small bilateral pleural effusions. Enrique Vidales MD Chest X-Ray 10/30/16 1329 Signed Impressions: Service Date/Time: , October 30, 2016 13:28 - CONCLUSION: 1. Cardiomegaly with basilar and perihilar airspace disease and small effusions. Differential diagnosis includes edema and infection. Sanya Pelaez MD Lower Extremity Ultrasound 10/30/16 0000 Signed Impressions: Service Date/Time: , October 30, 2016 17:22 - CONCLUSION: No DVT of the right lower extremity. Richie Salas MD Gall Bladder Ultrasound 10/30/16 0000 Signed Impressions: Service Date/Time: October 17:43 - CONCLUSION: Nonspecific gallbladder wall thickening but without sonographic Bunn sign. Congestive heart failure would be in the differential. No gallstones are demonstrated. Richie Salas MD Assessment and Plan Assessment and Plan Probable nonischemic cardiomyopathy. Viral versus tachycardia induced. TSH ordered as well as low dose Jero inhibitor. He will continue iv amiodarone until cath. Debra on hold for cath. Discussed Condition With patient and Richie Plascencia MD Nov 01, 2016 15:20
[2016-11-01] MEDS: AMIODARONE INJ 450 MG in DEXTROSE 5% IN WATE(EXCEL) INJ 241 ML IV SCH ×2 (15:29)
[2016-11-01] MEDS ORDERED: PILL SPLITTER OTHER PRN (15:30)
[2016-11-01] MEDS: ATORVASTATIN 10 MG TAB PO SCH (21:37)
--- NOTE | 2016-11-01 23:22 | RADRPT ---
EXAM DATE/TIME: 11/01/2016 22:07 [facility] COMPARISON: No previous studies available for comparison. INDICATIONS : Right upper extremity swelling. MEDICAL HISTORY : Gastroesophageal reflux disease. SURGICAL HISTORY : Total knee replacement, right. L3-4 disc surgery. ENCOUNTER: Initial ACUITY: 2 day PAIN SCORE: 2/10 LOCATION: Right arm. FINDINGS: There is spontaneous flow documented in the brachial, basilic, axillary, and subclavian veins. Impre ssion flow in the jugular vein is caudal. There is absent flow in the distal cephalic vein with echo genic thrombus within. CONCLUSION: Positive for venous thrombosis within the distal cephalic vein. Jonathan Burroughs MD on November 01, 2016 at 23:19 Board Certified Radiologist. This report was verified electronically.
[2016-11-01] MEDS: TEMAZEPAM 15 MG CAP PO PRN (23:49)
[2016-11-02] VITALS (27 sets, daily range): BP systolic 103–137; BP diastolic 56–86; PULSE 52–66; RESP 14–20; TEMP 97.4–98.7; O2SAT 93–98
[2016-11-02 04:31] LABS: AUTOMATED NEUTROPHIL # 5.8 TH/MM3 (1.8-7.7); BASOPHIL % 0.2 % (0.0-2.0); EOSINOPHIL # 0.1 TH/MM3 (0-0.4); EOSINOPHIL % 0.9 % (0.0-4.0); HEMATOCRIT 33.1 % (39.0-51.0); HEMO FLAGS DIFF FINAL; LYMPH % 19.9 % (9.0-44.0); LYMPHOCYTE # 1.7 TH/MM3 (1.0-4.8); MEAN CELL VOLUME 93.4 FL (80.0-100.0); MEAN CORPUSCULAR HEMOGLOBIN 32.4 PG (27.0-34.0); MEAN CORPUSCULAR HGB CONC 34.7 % (32.0-36.0); MONO % 8.6 % (0.0-8.0); NEUT % 70.4 % (16.0-70.0); PLATELET COUNT 203 TH/MM3 (150-450); RED BLOOD COUNT 3.55 MIL/MM3 (4.50-5.90); RED CELL DISTRIBUTION WIDTH 13.5 % (11.6-17.2); WHITE BLOOD COUNT 8.3 TH/MM3 (4.0-11.0)
[2016-11-02 04:58] LABS: ALT (GPT) 94 U/L (12-78); ANION GAP 9 MEQ/L (5-15); AST (GOT) 26 U/L (15-37); BICARBONATE 27.4 MEQ/L (21.0-32.0); BLOOD UREA NITROGEN 28 MG/DL (7-18); CHLORIDE 101 MEQ/L (98-107); GLOMERULAR FILTRATION RATE 61 ML/MIN (>89); SODIUM (NA) 137 MEQ/L (136-145)
[2016-11-02 05:00] LABS: ALKALINE PHOSPHATASE 64 U/L (45-117); TOTAL BILIRUBIN ADULT 0.4 MG/DL (0.2-1.0)
[2016-11-02] MEDS: LISINOPRIL 5 MG TAB PO SCH (08:40)
[2016-11-02] MEDS: PANTOPRAZOLE SOD 40 MG DELAYED RELEASE TAB PO SCH (08:40)
[2016-11-02] MEDS: AZITHROMYCIN 250 MG TAB PO SCH (08:40)
[2016-11-02] MEDS: CARVEDILOL 3.125 MG TAB PO SCH ×2 (08:40→20:41)
[2016-11-02] MEDS: ASPIRIN 325 MG TAB PO SCH (08:40)
[2016-11-02] MEDS: POTASSIUM CHLORIDE 20 MEQ CONTROLLED RELEASE TAB PO SCH (08:40)
[2016-11-02] MEDS: LACTOBACILLUS ACIDOPHILUS TAB PO SCH ×2 (08:40→20:41)
[2016-11-02] MEDS: AMIODARONE INJ 450 MG in DEXTROSE 5% IN WATE(EXCEL) INJ 241 ML IV SCH ×2 (08:41)
[2016-11-02] MEDS: FUROSEMIDE 20 MG/2 ML VIAL IV PUSH SCH ×2 (08:41→20:42)
[2016-11-02] MEDS: SODIUM CHLORIDE 0.9% FLUSH 5 ML FLUSH IV SCH ×2 (08:44→20:41)
--- NOTE | 2016-11-02 09:14 | HHI.FPPN ---
Subjective Remarks Patient seen and examined this am. Vitals are stable, patient in sinus rhythm, rate controlled. Patient feels well this morning. Wants to go home. Tolerating diet well. Objective Vitals Vital Signs Date Time Temp Pulse Resp B/P Pulse Ox O2 Delivery O2 Flow Rate FiO2 11/02/16 03:00 97.4 55 14 118/68 93 11/01/16 23:00 97.6 62 14 115/72 96 11/01/16 19:00 98.0 65 119/74 94 11/01/16 18:01 61 11/01/16 17:00 64 11/01/16 16:01 64 11/01/16 15:15 97.9 63 16 118/69 96 11/01/16 15:01 63 11/01/16 14:00 63 11/01/16 13:00 63 11/01/16 12:00 67 11/01/16 11:30 97.6 67 16 117/67 96 11/01/16 11:00 67 11/01/16 10:00 71 11/01/16 09:00 68 I/O 11/01/16 11/01/16 11/01/16 11/02/16 11/02/16 11/02/16 07:00 15:00 23:00 07:00 15:00 23:00 Intake Total 427 ml 1991 ml 667 ml Output Total 1280 ml 750 ml 580 ml Balance -853 ml 1241 ml 87 ml Intake Oral 240 ml 1080 ml 480 ml IV Total 187 ml 911 ml 187 ml Output Urine Total 1280 ml 750 ml 580 ml # Voids 4 # Bowel Movements 1 Result Diagram: 11/02/16 0341 11/02/16 0341 Imaging Last Impressions Upper Extremity Ultrasound 11/01/16 0000 Signed Impressions: Service Date/Time: Tuesday, November 01, 2016 22:07 - CONCLUSION: Positive for venous thrombosis within the distal cephalic vein. Jonathan Burroughs MD CT Angiography 10/30/16 1401 Signed Impressions: Service Date/Time: October 14:37 - CONCLUSION: 1. No evidence for pulmonary embolism. 2. Multilobar consolidation likely pneumonia or possibly pulmonary edema. 3. Cardiomegaly with small bilateral pleural effusions. Enrique Vidales MD Chest X-Ray 10/30/16 1329 Signed Impressions: Service Date/Time: October 13:28 - CONCLUSION: 1. Cardiomegaly with basilar and perihilar airspace disease and small effusions. Differential diagnosis includes edema and infection. Sanya Pelaez MD Lower Extremity Ultrasound 10/30/16 0000 Signed Impressions: Service Date/Time: October 17:22 - CONCLUSION: No DVT of the right lower extremity. Richie Salas MD Gall Bladder Ultrasound 10/30/16 0000 Signed Impressions: Service Date/Time: October 17:43 - CONCLUSION: Nonspecific gallbladder wall thickening but without sonographic Bunn sign. Congestive heart failure would be in the differential. No gallstones are demonstrated. Richie Salas MD Objective Remarks GENERAL: NAD SKIN: Warm and dry. HEAD: Normocephalic. EYES: No scleral icterus. No injection or drainage. NECK: Supple, trachea midline. No JVD or lymphadenopathy. CARDIOVASCULAR: Regular rate and rhythm without murmurs, gallops, or rubs. RESPIRATORY: Breath sounds equal bilaterally. No accessory muscle use. GASTROINTESTINAL: Abdomen soft, non-tender, nondistended. MUSCULOSKELETAL: trace pitting edema bilat. Right hand swelling, improved from yest. BACK: Nontender without obvious deformity. No CVA tenderness. A/P Assessment and Plan 66-year-old male with A-Fib with RVR with Atypical chest pain on admission: Now rate controlled on caredilol, s/p amioadrone drip. CTA without any evidence of pulmonary embolism ; initial cardiac enzyme negative, ACS ruled out per protocol with serial cardiac enzyme and EKGs.2-D echo with EF of 30%. s/p successful cardioversions 10/31/16 .s/p CLYDE 10/31/16 with evidence of reduced left ventricular function and no evidence of thrombus in the left atrial appendage. Plan for diagnostic heart catheterization 11/03/16 because of cardiomyopathy. Eliquis on hold. Telemetry monitoring. Cardiology to consider when to start NESHA inhibitor, beta mary. On statin, lipid panel wnl, may not need to be continued upon discharge. New onset acute systolic CHF: CTA noted in review. BNP elevated and 2D echo with EF 30%. CLYDE 10/31/16 with evidence of fluid use ventricular function. Continue Lasix 20 mg IV every 12 hour and K supplement. CHF education, strict I 's and O's . Cardiology to consider when to start NESHA inhibitor Severe Sepsis: Now resolved. Likely secondary to pulmonary infiltrate. Blood cultures negative x 2 days. Community-acquired pneumonia: CTA noted. Flu A and B antigens negative. Urine legionella negative. Not producing sputum for culture. Continue Rocephin and azithromycin (started 10/31). U DuoNeb when necessary and maintain oxygen saturation above 92%. Appreciate input from pulmonary medicine Right lower leg swelling: Resolved. DVT ruled out with Doppler Right arm swelling: US +venous thrombosis within distal cephalic vein. This is superficial so will require elevation of arm and NSAIDs for pain and cold compress. Impaired fasting glucose: hemoglobin A1c 5.6 Anemia mostly of chronic disease: with BROOKE Mildly elevated LFTs: Resolving/improving. Monitor LFTs DVT prophylaxis: Eliquis on hold, bilat SCDs Daly Angela MD R3 Nov 02, 2016 09:13
[2016-11-02] MEDS: cefTRIAXone INJ 1,000 MG in SODIUM CHLORIDE 0.9% INJ 100 ML IV SCH (10:21)
[2016-11-02] MEDS: IBUPROFEN 400 MG TAB PO SCH ×3 (12:00→23:51)
[2016-11-02] MEDS: ATORVASTATIN 10 MG TAB PO SCH (20:41)
[2016-11-02] MEDS: TEMAZEPAM 15 MG CAP PO PRN (23:50)
[2016-11-03] VITALS (20 sets, daily range): BP systolic 117–151; BP diastolic 67–82; PULSE 52–73; RESP 16–20; TEMP 98.3–100.2; O2SAT 92–98
[2016-11-03] MEDS: AMIODARONE INJ 450 MG in DEXTROSE 5% IN WATE(EXCEL) INJ 241 ML IV SCH ×4 (00:04→13:08)
[2016-11-03] MEDS: IBUPROFEN 400 MG TAB PO SCH ×5 (06:00→22:27)
[2016-11-03 06:24] LABS: AUTOMATED NEUTROPHIL # 4.1 TH/MM3 (1.8-7.7); BASOPHIL % 0.6 % (0.0-2.0); EOSINOPHIL # 0.2 TH/MM3 (0-0.4); EOSINOPHIL % 2.7 % (0.0-4.0); HEMATOCRIT 34.5 % (39.0-51.0); HEMO FLAGS DIFF FINAL; LYMPH % 23.9 % (9.0-44.0); LYMPHOCYTE # 1.6 TH/MM3 (1.0-4.8); MEAN CELL VOLUME 93.8 FL (80.0-100.0); MEAN CORPUSCULAR HEMOGLOBIN 32.3 PG (27.0-34.0); MEAN CORPUSCULAR HGB CONC 34.5 % (32.0-36.0); NEUT % 60.8 % (16.0-70.0); PLATELET COUNT 190 TH/MM3 (150-450); RED BLOOD COUNT 3.68 MIL/MM3 (4.50-5.90); RED CELL DISTRIBUTION WIDTH 13.3 % (11.6-17.2); WHITE BLOOD COUNT 6.7 TH/MM3 (4.0-11.0)
[2016-11-03 06:50] LABS: BICARBONATE 28.3 MEQ/L (21.0-32.0); POTASSIUM 3.9 MEQ/L (3.5-5.1)
--- NOTE | 2016-11-03 08:12 | HHI.PR ---
Subjective Remarks Going for CXR. Plan for cardiac cath at noon. No cp, sob, v/c/s/c. No diaphoresis. Objective Vitals Vital Signs Date Time Temp Pulse Resp B/P Pulse Ox O2 Delivery O2 Flow Rate FiO2 11/03/16 08:00 57 11/03/16 07:00 55 11/03/16 07:00 98.3 54 18 124/79 96 11/03/16 06:00 54 11/03/16 05:08 52 11/03/16 04:00 98.7 52 20 117/69 97 11/03/16 04:00 52 11/03/16 03:00 52 11/03/16 02:00 63 11/03/16 01:00 55 11/03/16 00:00 56 11/03/16 00:00 98.7 55 20 129/80 97 11/02/16 23:00 56 11/02/16 22:00 59 11/02/16 21:00 60 11/02/16 20:00 59 11/02/16 20:00 98.7 59 20 137/86 98 11/02/16 19:00 59 11/02/16 18:01 61 11/02/16 17:00 61 11/02/16 16:00 60 11/02/16 15:20 98.3 62 16 106/58 94 11/02/16 15:00 62 11/02/16 14:00 59 11/02/16 13:01 56 11/02/16 12:01 59 11/02/16 11:15 98.3 60 16 103/56 95 11/02/16 11:00 59 11/02/16 10:00 62 11/02/16 09:00 57 I/O 11/02/16 11/02/16 11/02/16 11/03/16 11/03/16 11/03/16 07:00 15:00 23:00 07:00 15:00 23:00 Intake Total 667 ml 1679 ml 684 ml Output Total 580 ml 1500 ml 1325 ml Balance 87 ml 179 ml -641 ml Intake Oral 480 ml 1200 ml 480 ml IV Total 187 ml 479 ml 204 ml Output Urine Total 580 ml 1500 ml 1325 ml # Voids 5 # Bowel Movements 2 Result Diagram: 11/03/1660411/03/16604 Imaging Last Impressions Upper Extremity Ultrasound 11/01/16 0000 Signed Impressions: Service Date/Time: Tuesday, November 01, 2016 22:07 - CONCLUSION: Positive for venous thrombosis within the distal cephalic vein. Jonathan Burroughs MD CT Angiography 10/30/16 1401 Signed Impressions: Service Date/Time: October 14:37 - CONCLUSION: 1. No evidence for pulmonary embolism. 2. Multilobar consolidation likely pneumonia or possibly pulmonary edema. 3. Cardiomegaly with small bilateral pleural effusions. Enrique Vidales MD Chest X-Ray 10/30/16 1329 Signed Impressions: Service Date/Time: October 13:28 - CONCLUSION: 1. Cardiomegaly with basilar and perihilar airspace disease and small effusions. Differential diagnosis includes edema and infection. Sanya Pelaez MD Lower Extremity Ultrasound 10/30/16 0000 Signed Impressions: Service Date/Time: October 17:22 - CONCLUSION: No DVT of the right lower extremity. Richie Salas MD Gall Bladder Ultrasound 10/30/16 0000 Signed Impressions: Service Date/Time: October 17:43 - CONCLUSION: Nonspecific gallbladder wall thickening but without sonographic Bunn sign. Congestive heart failure would be in the differential. No gallstones are demonstrated. Richie Salas MD Objective Remarks GENERAL: NAD SKIN: Warm and dry. HEAD: Normocephalic. EYES: No scleral icterus. No injection or drainage. NECK: Supple, trachea midline. No JVD or lymphadenopathy. CARDIOVASCULAR: Regular rate and rhythm without murmurs, gallops, or rubs. RESPIRATORY: Breath sounds equal bilaterally. No accessory muscle use. GASTROINTESTINAL: Abdomen soft, non-tender, nondistended. MUSCULOSKELETAL: trace pitting edema bilat. Right hand swelling, improved from yest. BACK: Nontender without obvious deformity. No CVA tenderness. A/P Problem List: (1) Chest pain, atypical ICD Code: R07.89 Status: Resolved (2) Community acquired pneumonia ICD Code: J18.9 Status: Acute (3) Impaired fasting glucose ICD Code: R73.01 Status: Resolved (4) Anemia of chronic disease ICD Code: D63.8 Status: Chronic (5) Right leg swelling ICD Code: M79.89 Status: Resolved (6) Elevated LFTs ICD Code: R94.5 Status: Acute (7) Acute systolic congestive heart failure ICD Code: I50.21 Status: Acute (8) Atrial fibrillation with rapid ventricular response ICD Code: I48.91 Status: Acute Assessment and Plan 66-year-old male with A-Fib with RVR with Atypical chest pain on admission: Now rate controlled on caredilol, s/p amioadrone drip. CTA without any evidence of pulmonary embolism ; initial cardiac enzyme negative, ACS ruled out per protocol with serial cardiac enzyme and EKGs.2-D echo with EF of 30%. s/p successful cardioversions 10/31/16 .s/p CLYDE 10/31/16 with evidence of reduced left ventricular function and no evidence of thrombus in the left atrial appendage. Plan for diagnostic heart catheterization 11/03/16 because of cardiomyopathy. Eliquis on hold. Telemetry monitoring. Cardiology to consider when to start NESHA inhibitor, beta mary. On statin, lipid panel wnl, may not need to be continued upon discharge. New onset acute systolic CHF: CTA noted in review. BNP elevated and 2D echo with EF 30%. CLYDE 10/31/16 with evidence of fluid use ventricular function. Continue Lasix 20 mg IV every 12 hour and K supplement. CHF education, strict I 's and O's . Cardiology to consider when to start NESHA inhibitor Severe Sepsis: Now resolved. Likely secondary to pulmonary infiltrate. Blood cultures negative x 2 days. Community-acquired pneumonia: CTA noted. Flu A and B antigens negative. Urine legionella negative. Not producing sputum for culture. Continue Rocephin and azithromycin (started 10/31). U DuoNeb when necessary and maintain oxygen saturation above 92%. Appreciate input from pulmonary medicine Right lower leg swelling: Resolved. DVT ruled out with Doppler Right arm swelling: US +venous thrombosis within distal cephalic vein. This is superficial so will require elevation of arm and NSAIDs for pain and cold compress. Impaired fasting glucose: hemoglobin A1c 5.6 Anemia mostly of chronic disease: with BROOKE Mildly elevated LFTs: Resolving/improving. Monitor LFTs DVT prophylaxis: Eliquis on hold, bilat ANNEs Maryanne Mayorga MD Nov 03, 2016 08:12
[2016-11-03] MEDS: LISINOPRIL 5 MG TAB PO SCH (08:45)
[2016-11-03] MEDS: PANTOPRAZOLE SOD 40 MG DELAYED RELEASE TAB PO SCH (08:46)
[2016-11-03] MEDS: FUROSEMIDE 20 MG/2 ML VIAL IV PUSH SCH ×2 (08:46→17:42)
[2016-11-03] MEDS: CARVEDILOL 3.125 MG TAB PO SCH ×2 (08:46→21:02)
[2016-11-03] MEDS: POTASSIUM CHLORIDE 20 MEQ CONTROLLED RELEASE TAB PO SCH (08:47)
[2016-11-03] MEDS: AZITHROMYCIN 250 MG TAB PO SCH (08:47)
[2016-11-03] MEDS: LACTOBACILLUS ACIDOPHILUS TAB PO SCH (08:47)
[2016-11-03] MEDS: ASPIRIN 325 MG TAB PO SCH (08:47)
[2016-11-03] MEDS: cefTRIAXone INJ 1,000 MG in SODIUM CHLORIDE 0.9% INJ 100 ML IV SCH (08:48)
[2016-11-03] MEDS: SODIUM CHLORIDE 0.9% FLUSH 5 ML FLUSH IV SCH (08:48)
--- NOTE | 2016-11-03 14:24 | RADRPT ---
EXAM DATE/TIME: 11/03/2016 09:57 [facility] COMPARISON: CHEST SINGLE AP, October 30, 2016, 13:28. INDICATIONS : Short of breath, evaluate CHF, pneumonia, nonsmoker, no chest surgery MEDICAL HISTORY : None. SURGICAL HISTORY : None. ENCOUNTER: Subsequent ACUITY: 1 week PAIN SCORE: 0/10 LOCATION: Bilateral chest FINDINGS: PA lateral views of the chest demonstrate significant improvement in the lung exam. There is minimal persistent left basilar atelectasis. The remainder of the lungs are mildly hypoinflated but clear. He art size is moderately enlarged. Pulmonary vasculature is normal in caliber. Osseous structures demon strate degenerative changes are otherwise unremarkable. CONCLUSION: Significantly improved exam. Minimal left basilar atelectasis. Stable mild cardiomegaly without curre nt evidence of congestive heart failure.. Eleanor Emery MD on November 03, 2016 at 12:11 Board Certified Radiologist. This report was verified electronically.
[2016-11-03] MEDS ORDERED: MIDAZOLAM HCL 2 MG/2 ML VIAL ONE ×2 (14:46→15:08)
[2016-11-03] MEDS ORDERED: HEPARIN-NS/PF INJ 500 ML ONE (14:46)
[2016-11-03] MEDS ORDERED: IODIXANOL 320 MG/ML 100 ML VIAL (for Cath Lab) OTHER ONE (16:10)
[2016-11-03] MEDS ORDERED: LIPI10TA PO (17:44)
[2016-11-03] MEDS ORDERED: ASPI325T PO (17:44)
[2016-11-03] MEDS ORDERED: AMIO200T PO (17:44)
--- NOTE | 2016-11-03 17:44 | HHI.DCPOC ---
Discharge Care Plan Goals to Promote Your Health * To prevent worsening of your condition and complications * To maintain your health at the optimal level Directions to Meet Your Goals Take your medications as prescribed Follow your dietary instruction Follow activity as directed Keep your appointments as scheduled Take your immunizations and boosters as scheduled If your symptoms worsen call your PCP, if no PCP go to Urgent Care Center or Emergency Room Smoking is Dangerous to Your Health. Avoid second hand smoke Call the 24-hour hour crisis hotline for domestic abuse at Maryanne Mayorga MD Nov 03, 2016 17:44
[2016-11-03] MEDS ORDERED: FURO1TAB62 PO (17:47)
--- NOTE | 2016-11-03 17:49 | HHI.DS ---
Discharge Summary Admission Date Oct 30, 2016 at 15:56 Discharge Date: Nov 03, 2016 Admitting Diagnosis tachycardia dysrhythmia/pneumonia/chest pain (1) Atrial fibrillation with rapid ventricular response ICD Code: I48.91 Diagnosis: Principal (2) Acute systolic congestive heart failure ICD Code: I50.21 Diagnosis: Principal (3) Chest pain, atypical ICD Code: R07.89 Diagnosis: Principal (4) Community acquired pneumonia ICD Code: J18.9 Diagnosis: Secondary (5) Impaired fasting glucose ICD Code: R73.01 Diagnosis: Secondary (6) Anemia of chronic disease ICD Code: D63.8 Diagnosis: Secondary (7) Right leg swelling ICD Code: M79.89 Diagnosis: Secondary (8) Elevated LFTs ICD Code: R94.5 Diagnosis: Secondary Procedures cardiac cath by Dr Taylor 11/03/16 Brief History - From Admission 66-year-old male with no prior cardiac history, and had a negative for cardiac workup June 2016 came to the ED for evaluation of acute onset of substernal chest pain described as stabbing associated with diaphoresis, shortness of breath without any radiation and pain rated 10 out of 10 in intensity. 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 Burris who advised patient to come to the ED for further evaluation. Patient states, since he has what he describes as heartburn with some chest pressure/ discomfort relieved sometimes with Prilosec. He also noticed worsening right leg swelling over the past several days however more pronounced today., Reported [address] last Thursday from the [facility]. Patient also reported dry cough and recent occasional chills. Otherwise he has no GI complaint, hemoptysis, hematuria or hematochezia CBC/BMP: 11/03/16 0605 11/03/16 0605 Significant Findings Laboratory Tests Test 10/31/16 11/01/16 11/02/16 11/03/16 18:35 05:33 03:41 06:05 Red Blood Count 3.92 MIL/MM3 3.40 MIL/MM3 3.55 MIL/MM3 3.68 MIL/MM3 (4.50-5.90) (4.50-5.90) (4.50-5.90) (4.50-5.90) Hemoglobin 12.6 GM/DL 11.0 GM/DL 11.5 GM/DL 11.9 GM/DL (13.0-17.0) (13.0-17.0) (13.0-17.0) (13.0-17.0) Hematocrit 36.9 % 31.9 % 33.1 % 34.5 % (39.0-51.0) (39.0-51.0) (39.0-51.0) (39.0-51.0) Neutrophils (%) (Auto) 83.6 % 81.4 % 70.4 % (16.0-70.0) (16.0-70.0) (16.0-70.0) Lymphocytes (%) (Auto) 5.6 % 7.2 % (9.0-44.0) (9.0-44.0) Monocytes (%) (Auto) 10.6 % 11.3 % 8.6 % (0.0-8.0) 12.0 % (0.0-8.0) (0.0-8.0) (0.0-8.0) Neutrophils # (Auto) 8.9 TH/MM3 8.7 TH/MM3 (1.8-7.7) (1.8-7.7) Lymphocytes # (Auto) 0.6 TH/MM3 0.8 TH/MM3 (1.0-4.8) (1.0-4.8) Monocytes # (Auto) 1.1 TH/MM3 1.2 TH/MM3 (0-0.9) (0-0.9) Sodium Level 135 MEQ/L (136-145) Blood Urea Nitrogen 28 MG/DL (7-18) 28 MG/DL (7-18) 23 MG/DL (7-18) Estimat Glomerular Filtration 60 ML/MIN (>89) 61 ML/MIN (>89) 64 ML/MIN (>89) Rate Random Glucose 153 MG/DL 111 MG/DL (74-106) (74-106) Calcium Level 8.1 MG/DL 8.1 MG/DL 7.9 MG/DL (8.5-10.1) (8.5-10.1) (8.5-10.1) Alanine Aminotransferase 96 U/L (12-78) 94 U/L (12-78) (ALT/SGPT) Total Protein 5.7 GM/DL 5.8 GM/DL (6.4-8.2) (6.4-8.2) Albumin 2.7 GM/DL 2.7 GM/DL (3.4-5.0) (3.4-5.0) Imaging Last Impressions Chest X-Ray 11/03/16 0700 Signed Impressions: Service Date/Time: Thursday, November 03, 2016 09:57 - CONCLUSION: Significantly improved exam. Minimal left basilar atelectasis. Stable mild cardiomegaly without current evidence of congestive heart failure.. Eleanor Emery MD Upper Extremity Ultrasound 11/01/16 0000 Signed Impressions: Service Date/Time: Tuesday, November 01, 2016 22:07 - CONCLUSION: Positive for venous thrombosis within the distal cephalic vein. Jonathan Burroughs MD CT Angiography 10/30/16 1401 Signed Impressions: Service Date/Time: October 14:37 - CONCLUSION: 1. No evidence for pulmonary embolism. 2. Multilobar consolidation likely pneumonia or possibly pulmonary edema. 3. Cardiomegaly with small bilateral pleural effusions. Enrique Vidales MD Lower Extremity Ultrasound 10/30/16 0000 Signed Impressions: Service Date/Time: October 17:22 - CONCLUSION: No DVT of the right lower extremity. Richie Salas MD Gall Bladder Ultrasound 10/30/16 0000 Signed Impressions: Service Date/Time: October 17:43 - CONCLUSION: Nonspecific gallbladder wall thickening but without sonographic Bunn sign. Congestive heart failure would be in the differential. No gallstones are demonstrated. Richie Salas MD PE at Discharge GENERAL: NAD SKIN: Warm and dry. HEAD: Normocephalic. EYES: No scleral icterus. No injection or drainage. NECK: Supple, trachea midline. No JVD or lymphadenopathy. CARDIOVASCULAR: Regular rate and rhythm without murmurs, gallops, or rubs. RESPIRATORY: Breath sounds equal bilaterally. No accessory muscle use. GASTROINTESTINAL: Abdomen soft, non-tender, nondistended. MUSCULOSKELETAL: trace pitting edema bilat. Right hand swelling, improved from yest. BACK: Nontender without obvious deformity. No CVA tenderness. Hospital Course 66-year-old male with no prior cardiac history, and had a negative for cardiac workup June 2016 came to the ED for evaluation of acute onset of substernal chest pain described as stabbing associated with diaphoresis, shortness of breath without any radiation and pain rated 10 out of 10 in intensity. 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 Burris who advised patient to come to the ED for further evaluation. Patient states, since he has what he describes as heartburn with some chest pressure/ discomfort relieved sometimes with Prilosec. He also noticed worsening right leg swelling over the past several days however more pronounced today., Reported [address] last Thursday from the [facility]. Patient also reported dry cough and recent occasional chills. Otherwise he has no GI complaint, hemoptysis, hematuria or hematochezia 66-year-old male with A-Fib with RVR with Atypical chest pain on admission: Now rate controlled on caredilol, s/p amioadrone drip. CTA without any evidence of pulmonary embolism ; initial cardiac enzyme negative, ACS ruled out per protocol with serial cardiac enzyme and EKGs.2-D echo with EF of 30%. s/p successful cardioversions 10/31/16 .s/p CLYDE 10/31/16 with evidence of reduced left ventricular function and no evidence of thrombus in the left atrial appendage. Plan for diagnostic heart catheterization 11/03/16 because of cardiomyopathy. Eliquis on hold. Telemetry monitoring. Cardiology to consider when to start NESHA inhibitor, beta mary. On statin, lipid panel wnl, not need to be continued upon discharge. Cardiac cath wnl, cleared by Dr Taylor for DC after 6 hrs. To follow up with Dr Taylor as OP. New onset acute systolic CHF: CTA noted in review. BNP elevated and 2D echo with EF 30%. CLYDE 10/31/16 with evidence of fluid use ventricular function. Continue Lasix 20 mg IV every 12 hour and K supplement. CHF education, strict I 's and O's . Cardiology to consider when to start NESHA inhibitor Severe Sepsis: Now resolved. Likely secondary to pulmonary infiltrate. Blood cultures negative x 2 days. Community-acquired pneumonia: CTA noted. Flu A and B antigens negative. Urine legionella negative. Not producing sputum for culture. Continue Rocephin and azithromycin (started 10/31). U DuoNeb when necessary and maintain oxygen saturation above 92%. Appreciate input from pulmonary medicine Right lower leg swelling: Resolved. DVT ruled out with Doppler Right arm swelling: US +venous thrombosis within distal cephalic vein. This is superficial so will require elevation of arm and NSAIDs for pain and cold compress. Impaired fasting glucose: hemoglobin A1c 5.6 Anemia mostly of chronic disease: with BROOKE Mildly elevated LFTs: Resolving/improving. Monitor LFTs Cleared by cards for DC. To follow up as OP with PCP and consultants. Pt Condition on Discharge: Fair Discharge Disposition: Discharge Home Discharge Time: <= 30 minutes Discharge Instructions DIET: Follow Instructions for: Heart Healthy Diet Activities you can perform: Partial Weight Bearing Follow up Referrals: Cardiology - 1 Week with Mayra Taylor MD PCP Follow-up - 3-5 Days New Medications: Amiodarone (Amiodarone) 200 Mg Tab 200 MG PO DAILY Regulate Heart Beat #30 Ref 0 TAB Furosemide (Lasix) 20 Mg Tab 20 MG PO DAILY edema #30 Ref 0 TAB Aspirin (Aspirin) 325 Mg Tab 325 MG PO [employer]ELOPER Blood Clot Prevention #30 TAB Atorvastatin (Lipitor) 10 Mg Tab 10 MG PO HS Cholesterol Management #30 TAB Maryanne Mayorga MD Nov 03, 2016 17:49
[2016-11-03] MEDS ORDERED: LISINOPRIL 5 MG TAB PO ONE (22:00)
--- NOTE | 2016-11-04 09:35 | MA ---
cc: BIJAL JOHNSON MD, HUMAYUN A. M.D. CROUCH, EUGENE M. MD DATE 11/03/2016 PROCEDURE PERFORMED Cardiac catheterization report. INDICATION FOR CATHETERIZATION 1. Atrial flutter with 2:1 heart block 2. status post cardioversion 3. Class IV congestive heart failure 4. Cardiomyopathy CONSENT A full informed consent was obtained for the procedures. The risks of , bleeding, myocardial infarction, perforation, aspiration, foreseen and unforeseen complications were reviewed. The patient fully appeared to understand the risks. PROCEDURAL STATEMENT The patient was draped and prepped in the usual manner. The right femoral artery was entered using a micropuncture technique with ultrasound via the 4 Persian sheath, left and right coronary catheters were used to intubate the left and right coronaries. Pigtail catheter was used to intubate the left ventricle. Multiple views were carried out. At the end of the catheterization procedure, all catheters and sheaths were removed. Manual pressure was applied until good hemostasis achieved and the patient returned to his room in stable condition. FINDINGS HEMODYNAMIC RESULTS Aortic pressure was 121/71 with a mean of 93, left ventricular pressure was 132 with a left ventricular end diastolic pressure of 18 mmHg. Left ventriculogram, the overall left ventricle ejection fraction was globally reduced which was estimated at 40%. CORONARIES The left main is free of significant disease. The left anterior descending artery. This is a large tortuous vessel with a medium sized first diagonal branch and a large septal classroom monitor. There is a medium-sized second diagonal branch. The circumflex artery was a large artery with a very early first obtuse marginal branch that was free of significant disease. The obtuse marginal branch was also medium to large and free of significant disease, but it was tortuous. The right coronary artery was a large tortuous vessel. In the proximal RCA there was a 50% stenosis just prior to a bend. It was a smooth stenosis. There was a large posterior descending artery and a large posterolateral branch. CONCLUSION 1. 50% right coronary disease. 2. Ejection fraction reduced at 40%. PLAN Medical management with continued beta blockers, Jero inhibitors etc. to try and improve the ejection fraction. Mayra Taylor MD, FRCP,FACC JOSE LUIS/NALINI /3:33 PM /9:23 AM
== END 2016-11-03 22:46 | disposition home or self-care (01) | DRG 871 ==
LOC: NEPE 12:35 → NEDA 15:56 → HCIS 23:25
PROVIDERS: ADMIT Hospitalist; ATTEND Hospitalist
PROC: 5A2204Z Restoration of Cardiac Rhythm, Single (ICD-10-PCS; principal; 2016-10-31)
PROC: B246ZZ4 Ultrasonography of Right and Left Heart, Transesophageal (ICD-10-PCS; 2016-10-31)
PROC: 4A023N7 Measurement of Cardiac Sampling and Pressure, Left Heart, Percutaneous Approach (ICD-10-PCS; 2016-11-03)
PROC: B2111ZZ Fluoroscopy of Multiple Coronary Arteries using Low Osmolar Contrast (ICD-10-PCS; 2016-11-03)
PROC: B2151ZZ Fluoroscopy of Left Heart using Low Osmolar Contrast (ICD-10-PCS; 2016-11-03)
DX: A41.9 Sepsis, unspecified organism (principal); J15.9 Unspecified bacterial pneumonia; I50.21 Acute systolic (congestive) heart failure; I31.3 Pericardial effusion (noninflammatory); K70.9 Alcoholic liver disease, unspecified; I42.9 Cardiomyopathy, unspecified; I48.92 Unspecified atrial flutter; E87.1 Hypo-osmolality and hyponatremia; I82.611 Acute embolism and thrombosis of superficial veins of right upper extremity; I48.91 Unspecified atrial fibrillation; I25.10 Atherosclerotic heart disease of native coronary artery without angina pectoris; K21.9 Gastro-esophageal reflux disease without esophagitis; D63.8 Anemia in other chronic diseases classified elsewhere; R73.01 Impaired fasting glucose; R07.89 Other chest pain; R65.20 Severe sepsis without septic shock; I87.2 Venous insufficiency (chronic) (peripheral); I44.7 Left bundle-branch block, unspecified; I34.0 Nonrheumatic mitral (valve) insufficiency; M79.89 Other specified soft tissue disorders
CPT/HCPCS: 71010; 71020; 71275; 76705; 80048; 80053; 80061; 80074; 82550; 82552; 83036; 83540; 83550; 83605; 83735; 83880; 84443; 84484; 85025; 85610; 85730; 87040; 87070; 87205; 87449; 87804; 92960; 93005; 93306; 93312; 93320; 93325; 93458; 93971; 96361; 96374; 96375; C1769; C1893; J0282; J0456; J0696; J1100; J1644; J1940; J2250; J2270; J2405; J3010; J7030; J7050; J7060; Q9967